=== PATIENT | female | born 1960 | race Caucasian/White ===

== ENCOUNTER 2016-11-12 10:34 | Observation (INO) ==
[2016-11-12] MEDS ORDERED: Aspirin 81 MG TAB.CHEW PO ONE (10:40)
--- NOTE | 2016-11-12 10:44 | Emergency Department Note ---
Disposition Clinical Impression: Chest pain Qualifiers: Chest pain type: unspecified Qualified Code(s): R07.9 - Chest pain, unspecified Disposition: Admitted As Inpatient Referrals: Dean Tim MD [Primary Care Provider] - Time of Disposition: 12:15 Chest Pain HPI - General Stated Complaint: chest pain since last night Time Seen by Provider: 11/12/16 10:39 Source: patient Mode of arrival: ambulatory Limitations: no limitations Vital Signs Reviewed: Yes Nursing Notes Reviewed: Yes - History of Present Illness HPI Narrative: 56-year-old presents from complaining of chest pain which began about 4 AM. Patient does have a previous stent remotely. Patient states that she has not had any recent workup. Patient is a diabetic. Pt complaint: chest pain Onset (ago): hour(s) Duration: constant Onset: during rest Pain Location: substernal, left chest Severity: mild, moderate Quality: tightness, aching Pain Radiation: none Improves with: nothing Worsens with: nothing Associated symptoms: Denies: nausea, vomiting, diaphoresis, syncope, palpitations - Related Data Home Medications Medication Instructions Recorded Confirmed Aspirin 325 mg PO QAM 08/11/15 03/18/16 Atorvastatin Calcium [Lipitor] 80 mg PO QAM 08/11/15 03/18/16 Hydrochlorothiazide 25 mg PO QAM 08/11/15 03/18/16 Insulin Glargine,Hum.rec.anlog 60 unit SQ HS 08/11/15 03/18/16 [Lantus Solostar] Insulin Glargine,Hum.rec.anlog 70 unit SQ QAM 08/11/15 03/18/16 [Lantus Solostar] Insulin Lispro Protamin/Lispro 5 - 18 unit SQ TIDAC 08/11/15 03/18/16 [Humalog Mix 75-25 Kwikpen] Liraglutide [Victoza 2-Jarad] 1.2 mg SQ QAM 08/11/15 03/18/16 Lisinopril [Zestril] 20 mg PO QAM 08/11/15 03/18/16 Metoprolol [Lopressor] 50 mg PO BID 08/11/15 03/18/16 Nitroglycerin 0.4 mg SL Q5MIN PRN 08/11/15 03/18/16 Pantoprazole Sodium [Protonix] 40 mg PO BID 08/11/15 03/18/16 Ranitidine HCl [Zantac] 150 mg PO BID 08/11/15 03/18/16 Tizanidine [Zanaflex] 4 mg PO TID PRN 08/11/15 03/18/16 Isosorbide MONOnitrate [Isosorbide 30 mg PO DAILY 12/01/15 03/18/16 Mononitrate] Previous Rx's Medication Instructions Recorded Cefdinir [Omnicef] 300 mg PO BID #20 capsule 08/09/16 PredniSONE [Prednisone] 40 mg PO DAILY #10 tablet 08/09/16 Promethazine/Dextromethorphan 5 ml PO Q4H PRN #120 ml 08/09/16 [Promethazine-Dm Syrup] Allergies Allergy/AdvReac Type Severity Reaction Status Date / Time dicyclomine AdvReac Hives Verified 11/12/16 10:44 metformin AdvReac Blurry Verified 11/12/16 10:44 Vision Constitutional: Denies: fever, chills, weakness, weight change Eyes: Denies: eye pain, eye discharge, vision change ENT ED: Denies: ear pain, throat pain, dental pain, hearing loss, epistaxis, congestion, dysphagia Cardiovascular: Reports: chest pain. Denies: palpitations, dyspnea on exertion , edema, syncope Respiratory: Denies: cough, dyspnea, wheezes, hemoptysis, stridor Gastrointestinal: Denies: abdominal pain, nausea, vomiting, diarrhea, constipation, hematemesis, melena, hematochezia Genitourinary: Denies: dysuria, frequency, hematuria, discharge Musculoskeletal: Denies: back pain, neck pain, arthralgia, myalgia Integumentary: Denies: rash, abrasion, lesions Neurological: Denies: headache, weakness, numbness, paresthesias, confusion, abnormal gait, vertigo Psychiatric: Denies: anxiety, depression, suicidal thoughts, homicidal thoughts , auditory hallucinations, visual hallucinations Endocrine: Denies: fatigue Hematological/Lymphatic: Denies: easy bleeding, easy bruising Allergic/Immunologic: Denies: facial swelling, urticaria Chest Pain PMH - Past Medical History Medical history: Reports: coronary artery disease, diabetes, GERD, hyperlipidemia, hypertension, myocardial infarction Surgical history: Reports: angioplasty/stent (PCI of diag 1 in 2005), cholecystectomy, hysterectomy, other (hernia repair 08/2013) Psychiatric history: Reports: depression ART EDITOR history: Reports: no ART EDITOR history - Social History Smoking Status: Unknown if ever smoked Alcohol use: Reports: unknown Drug use: Reports: none Physical Exam - General Limitations: no limitations General appearance: alert, in no apparent distress - Head Head exam: atraumatic, normocephalic, normal inspection - Eye Eye exam: Present: normal appearance, PERRL, EOMI - ENT ENT exam: normal exam, normal oropharynx, mucous membranes moist - Neck Neck exam: Present: normal inspection, full ROM, trachea midline - Chest Chest inspection: Present: normal inspection, symmetric chest wall rise - Respiratory Respiratory exam: Present: normal lung sounds bilaterally - Cardiovascular Cardiovascular exam: Present: regular rate, normal rhythm, normal heart sounds - Abdominal Exam Abdominal exam: Present: soft, Non-Tender. Absent: tenderness, distention, guarding, rebound, rigidity - Extremities Exam Extremities exam: Present: normal inspection, full ROM. Absent: tenderness, pedal edema - Expanded Lower Extremity Exam Neurovascular/Tendon exam: Absent: motor deficit, sensory deficit, tendon deficit - Back Exam Back exam: Present: normal inspection, full ROM. Absent: tenderness - Neurological Exam Neurological exam: Present: alert, oriented X3 - Psychiatric Psychiatric exam: Present: normal affect, normal mood - Skin Skin exam: Present: warm, dry, intact, normal color Course - Reevaluation(s) Reevaluation #1: 56-year-old with known coronary artery disease has not had a recent workup and comes in complaining of chest pain. Workup in the ER is negative we'll go ahead and admit to rule out. Time: 12:14 - Consultations Consultation #1: Discussed with , admit. Time: 12:14 Vital Signs Temperature 97.9 F 11/12/16 10:42 Pulse Rate 80 11/12/16 10:42 Respiratory Rate 16 11/12/16 10:42 Blood Pressure 138/81 11/12/16 10:42 O2 Sat by Pulse Oximetry 100 11/12/16 10:42 Temperature 97.9 F 11/12/16 10:42 Pulse Rate 76 11/12/16 11:39 Respiratory Rate 16 11/12/16 11:39 Blood Pressure 112/69 11/12/16 11:39 O2 Sat by Pulse Oximetry 97 11/12/16 11:39 Oxygen Delivery Oxygen Delivery Room Air Chest Pain - Lab Data Lab results reviewed: Yes I reviewed the patient's lab results. Result diagrams: 11/12/16 10:57 11/12/16 10:57 Lab Results 11/12/16 11/12/16 11/12/16 Range/Units 10:47 10:57 10:57 WBC 12.1 H (4.3-11.1) K/mcL RBC 4.42 (3.82-4.97) M/mcL Hgb 11.6 (11.5-15.4) g/dL Hct 36.3 (35.3-44.9) % MCV 82.1 L (83.0-100.0) fL MCH 26.2 L (28.0-33.3) pg MCHC 32.0 (31.6-35.5) g/dL RDW 13.3 (11.5-14.5) % Plt Count 359 (140-400) K/mcL MPV 9.1 L (9.4-12.4) fL Immature Gran % 0.3 (0-4) % Seg Neutrophils % 79.1 % Lymphocytes % 13.1 % Monocytes % 6.4 % Eosinophils % 0.6 % Basophils % 0.5 % Neutrophils # 9.6 H (1.6-8.9) K/mcL Lymphocytes # 1.6 (0.6-4.6) K/mcL Monocytes # 0.8 (0.0-1.3) K/mcL Eosinophils # 0.1 (0.0-0.6) K/mcL Basophils # 0.1 (0.0-0.2) K/mcL PT 11.1 (9.4-12.1) Seconds INR 1.0 APTT 29.3 (26.0-36.0) Seconds Sodium (136-145) mEq/L Potassium (3.5-4.5) mEq/L Chloride (98-109) mEq/L Carbon Dioxide (19-29) mEq/L BUN (7-20) mg/dL Creatinine (0.57-1.11) mg/dL Est GFR ( Amer) (> 60) Est GFR (Non-Af Amer) (> 60) BUN/Creatinine Ratio (6-26) Glucose (70-99) mg/dL POC Glucose 103 H (58-89) Calculated Osmolality (280-300) Calcium (8.6-10.8) mg/dL Troponin I (0-0.03) ng/mL 11/12/16 11/12/16 Range/Units 10:57 10:57 WBC (4.3-11.1) K/mcL RBC (3.82-4.97) M/mcL Hgb (11.5-15.4) g/dL Hct (35.3-44.9) % MCV (83.0-100.0) fL MCH (28.0-33.3) pg MCHC (31.6-35.5) g/dL RDW (11.5-14.5) % Plt Count (140-400) K/mcL MPV (9.4-12.4) fL Immature Gran % (0-4) % Seg Neutrophils % % Lymphocytes % % Monocytes % % Eosinophils % % Basophils % % Neutrophils # (1.6-8.9) K/mcL Lymphocytes # (0.6-4.6) K/mcL Monocytes # (0.0-1.3) K/mcL Eosinophils # (0.0-0.6) K/mcL Basophils # (0.0-0.2) K/mcL PT (9.4-12.1) Seconds INR APTT (26.0-36.0) Seconds Sodium 140 (136-145) mEq/L Potassium 4.0 (3.5-4.5) mEq/L Chloride 106 (98-109) mEq/L Carbon Dioxide 23 (19-29) mEq/L BUN 14 (7-20) mg/dL Creatinine 0.86 (0.57-1.11) mg/dL Est GFR ( Amer) > 60 (> 60) Est GFR (Non-Af Amer) > 60 (> 60) BUN/Creatinine Ratio 16 (6-26) Glucose 109 H (70-99) mg/dL POC Glucose (58-89) Calculated Osmolality 291 (280-300) Calcium 9.2 (8.6-10.8) mg/dL Troponin I 0.01 (0-0.03) ng/mL - EKG Data EKG attestation: Yes I reviewed and interpreted this EKG. EKG shows normal: sinus rhythm Rate: normal Rhythm: NSR Interpretation: no acute changes Heart Score - Score History: Moderately Suspicious EKG: Normal Age: 45-65 Risk Factors: Equal/Greater than 3 risk factor or history of atherosclerotic disease Troponin: Less than normal limit HEART Score Total: 4
[2016-11-12 11:05] LABS: Basophils # 0.1 K/mcL (0.0-0.2); Basophils % 0.5 %; Eosinophils # 0.1 K/mcL (0.0-0.6); Eosinophils % 0.6 %; Hematocrit 36.3 % (35.3-44.9); Hemoglobin 11.6 g/dL (11.5-15.4); Immature Granulocytes % 0.3 % (0-4); Lymphocytes # 1.6 K/mcL (0.6-4.6); Lymphocytes % 13.1 %; Mean Corpuscular Hemoglobin 26.2 pg (28.0-33.3); Mean Corpuscular Volume 82.1 fL (83.0-100.0); Mean Platelet Volume 9.1 fL (9.4-12.4); Monocytes # 0.8 K/mcL (0.0-1.3); Monocytes % 6.4 %; Neutrophils # 9.6 K/mcL (1.6-8.9); Platelet Count 359 K/mcL (140-400); Red Blood Count 4.42 M/mcL (3.82-4.97); Red Cell Distribution Width 13.3 % (11.5-14.5); Segmented Neutrophils % 79.1 %
[2016-11-12 11:12] LABS: Prothrombin Time 11.1 Seconds (9.4-12.1)
[2016-11-12 11:15] LABS: Activated Partial Thrombo Time 29.3 Seconds (26.0-36.0)
[2016-11-12 11:17] LABS: BUN/Creatinine Ratio 16 (6-26); Blood Urea Nitrogen 14 mg/dL (7-20); Calcium 9.2 mg/dL (8.6-10.8); Carbon Dioxide 23 mEq/L (19-29); Chloride 106 mEq/L (98-109); Glucose 109 mg/dL (70-99); Osmolality,Calculated 291 (280-300); Sodium 140 mEq/L (136-145); eGFR For African Americans > 60 (> 60); eGFR For Non-African Americans > 60 (> 60)
[2016-11-12] MEDS ORDERED: Ibuprofen 400 MG TABLET PO PRN (13:30)
[2016-11-12] MEDS ORDERED: Naloxone 0.4 MG/ML INJ IVP PRN (13:30)
[2016-11-12] MEDS ORDERED: Nitroglycerin 0.4 MG TAB.SUBL SL PRN (13:33)
[2016-11-12] MEDS ORDERED: D5% in Water 1,000 ML IV PRN (13:37)
[2016-11-12] MEDS ORDERED: Dextrose Gel 15 GM PO PRN ×2 (13:37)
[2016-11-12] MEDS ORDERED: *HR* Dextrose 50 % in Water (Syg) 50 ML SYRINGE IVP PRN (13:37)
--- NOTE | 2016-11-12 13:54 | Internal Med History&Physical ---
<Boyd Brooks - Last Filed: 11/12/16 20:46> Date of Encounter: 11/12/16 Internal Medicine - H&P: HPI History of present illness: Ms. Hill is a 56 year old female Internal Medicine - H&P: Meds Aspirin 325 mg PO QAM 08/11/15 [History] Atorvastatin Calcium [Lipitor] 80 mg PO QAM 08/11/15 [History] Hydrochlorothiazide 25 mg PO QAM 08/11/15 [History] Insulin Glargine,Hum.rec.anlog [Lantus Solostar] 60 unit SQ HS 08/11/15 [History ] Insulin Glargine,Hum.rec.anlog [Lantus Solostar] 70 unit SQ QAM 08/11/15 [ History] Insulin Lispro Protamin/Lispro [Humalog Mix 75-25 Kwikpen] 5 - 18 unit SQ TIDAC 08/11/15 [History] Liraglutide [Victoza 2-Jarad] 1.2 mg SQ QAM 08/11/15 [History] Lisinopril [Zestril] 20 mg PO QAM 08/11/15 [History] Metoprolol [Lopressor] 50 mg PO BID 08/11/15 [History] Nitroglycerin 0.4 mg SL Q5MIN PRN 08/11/15 [History] Pantoprazole Sodium [Protonix] 40 mg PO BID 08/11/15 [History] Ranitidine HCl [Zantac] 150 mg PO BID 08/11/15 [History] Isosorbide MONOnitrate [Isosorbide Mononitrate] 30 mg PO DAILY 12/01/15 [History ] Allergies dicyclomine Adverse Reaction (Verified 11/12/16 10:44) Hives metformin Adverse Reaction (Verified 11/12/16 10:44) Blurry Vision All Systems PM: A 10-system review of systems was performed and is negative for pertinent findings except as documented above in the HPI. - Constitutional Vitals: Temp Pulse Resp BP Pulse Ox 97.9 F 75 16 110/70 94 L 11/12/16 18:35 11/12/16 18:35 11/12/16 18:35 11/12/16 20:41 11/12/16 18:35 Internal Med - H&P Results - Labs CBC & Chem 7: 11/12/16 17:43 11/12/16 10:57 Labs: Short CBC 11/12/16 Range/Units 17:43 WBC 12.5 H (4.3-11.1) K/mcL Hgb 11.3 L (11.5-15.4) g/dL Hct 35.9 (35.3-44.9) % Plt Count 366 (140-400) K/mcL Cardiac Enzymes 11/12/16 Range/Units 17:43 Troponin I 0.00 (0-0.03) ng/mL - Attending Attestation I examined this patient and my medical decision-making was reviewed with the FIELD SUPERINTENDENT/PA/Advanced Practice Nurse/Resident Physician. I agree with the documented findings, disposition and treatment plan as described except to the extent set forth below. Patient presented with chest pain. Currently she tells me she has 3/10 dull midsternal chest pain. On exam she is in no acute distress awake alert oriented heart is regular rhythm and rhythm S1-S2. Plan continue heparin drip. Aspirin. Nitroglycerin. We will add morphine for pain. Plan for cardiac catheterization tomorrow. Cardiology was consulted. <Nikki Berry M - Last Filed: 11/13/16 00:57> Date of Encounter: 11/13/16 Time of Encounter: 13:46 Assessment and Plan (1) Chest pain Current visit: Yes Status: Acute Patient reports burning chest pain that woke her from sleep at 4 AM this morning , radiating from the left side of her chest to the right, and it comes and goes. She denies any shortness of breath, palpitations, lightheadedness. Reports accompanied diarrhea which is consistent with a heart attack in 2005. She had a stress test in July 2015 which did show a small reversible apical anterior defect. At that time medical management was recommended and Imdur was added to her regimen. She denies any current chest pain. Initial troponin was negative at 0.01. EKG showed normal sinus rhythm with no acute changes. 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 Serial troponins for trend. titrate O2 to maintain O2 Sat > 92% Consulted Cardiology, Dr. Smith, who recommended Heparin drip and they will plan for a cardiac cath in the morning. Qualifiers: Chest pain type: precordial pain Qualified Code(s): R07.2 - Precordial pain (2) Type 2 diabetes mellitus Current visit: Yes Status: Chronic diabetic diet. Check blood sugars ACHS Continue home basal dose of insulin 60u HS and 70u Q AM High dose sliding scale correction dose ACHS hypoglycemic protocol. 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 Possible source of her chest pain is acid reflux. Omeprazole 20mg daily ordered. Qualifiers: Esophagitis presence: without esophagitis Qualified Code(s): K21.9 - Gastro -esophageal reflux disease without esophagitis (4) Hypertension Current visit: No Status: Chronic Continue home doses of Metoprolol, Imdur, lisinopril and HCTZ. Hold metoprolol and Imdur after midnight for planned stress test in the morning. Qualifiers: Hypertension type: essential hypertension Qualified Code(s): I10 - Essential (primary) hypertension (5) DVT prophylaxis Current visit: Yes Status: Acute Ambulate as tolerated. anti-embolic stockings Heparin 5,000u SQ BID Internal Medicine - H&P: HPI Chief complaint: Chest pain Admitted From: Emergency Dept Plans for Post Hospital Care: Home History of present illness: Ms. Hill is a 56 year old female with history of hypertension, hyperlipidemia , type 2 diabetes, coronary artery disease with [place] in 2006 status post stent placement who presented to the emergency department this morning with complaints of chest pain. She reports the chest pain work woke her up at 4 AM describes it as a burning sensation that starts on the left side of her chest and radiates to the right side. It comes and goes. She did not take any nitroglycerin. She reports she is currently chest pain-free. She reports she also had an episode of diarrhea this morning which is actually consistent with her experience with her previous [place] in 2005. She denies any shortness of breath , palpitations, lightheadedness, dizziness, nausea, or vomiting. Initial troponin in the emergency department was negative at 0.01, EKG showed normal sinus rhythm with no acute changes, chest x-ray showed no acute process. She did have a stress test in July 2015 which did show a small reversible apical anterior defect and at that time was determined to optimize medical management and Imdur was added to her regimen. On exam she is alert and oriented, obese, in no acute distress. Lungs are clear to auscultation bilaterally and heart has regular rate and rhythm. Past Med Surg Social Fam HX - Past Medical History Medical history: coronary artery disease, diabetes, GERD, hyperlipidemia, hypertension, myocardial infarction Psychiatric history: depression - Past Surgical History Surgical History: angioplasty/stent (PCI of diag 1 in 2005), cholecystectomy, hysterectomy, other (hernia repair 08/2013) - Social History Smoking Status: Unknown if ever smoked Smokeless Tobacco Status: No Alcohol use: unknown Drug use: none - Family History Mother Living Status: Age at : 60 Cause of : CHF Hx Family Cardiac Disorders: Yes Sister Living Status: Still Living Hx Family Cancer: Yes All Systems PM: A 10-system review of systems was performed and is negative for pertinent findings except as documented above in the HPI. - Constitutional Constitutional: no chills, no fever(s), no night sweats - EENT Eyes: no change in vision, no discharge, no pain, no photophobia Ears: no ear discharge, no ear pain, no tinnitus Nose, mouth and throat: no dysphagia, no nasal discharge, no neck pain, no sore throat - Cardiovascular Cardiovascular ROS IM: chest pain, no diaphoresis, no dyspnea, no lightheadedness, no palpitations, no syncope - Respiratory Respiratory: no cough, no dyspnea, no wheezing, no excessive phlegm production - Gastrointestinal Gastrointestinal: diarrhea, no abdominal pain, no hematemesis, no hematochezia, no melena, no nausea, no vomiting - Genitourinary Genitourinary: no change in urinary stream, no dysuria, no flank pain, no hematuria - Musculoskeletal Musculoskeletal ROS IM: back pain (chronic), no numbness, no tingling - Integumentary Integumentary IM: no rash, no unusual bruising - Neurological Neurological ROS: numbness (Bilateral hands on and off for a few weeks), tingling (Bilateral hands on and off for a few weeks), no confusion, no convulsions, no focal weakness, no tremor(s) - Hematologic/Lymphatic Hematologic/Lymphatic: no easy bruising - Constitutional Vitals: Temp Pulse Resp BP Pulse Ox 98.0 F 77 16 104/67 99 11/12/16 12:43 11/12/16 12:43 11/12/16 12:43 11/12/16 12:43 11/12/16 12:43 General appearance: Present: A&O X 3, no acute distress, obese - Head Head exam: Present: atraumatic, normocephalic - Eye Eye exam: Present: PERRL, conjuntiva pink, sclera anicteric Pupils: Present: PERRL - Neck Neck exam general surgery: Present: supple, trachea midline. Absent: lymphadenopathy - Respiratory Respiratory exam: Present: CTAB. Absent: accessory muscle use, rales, rhonchi, wheezes - Cardiovascular Cardiovascular exam: Present: RRR, +S1, +S2. Absent: diastolic murmur, gallop, rubs, systolic murmur - GI/Abdominal GI/Abdominal exam: Present: normal bowel sounds, soft, no peritoneal signs. Absent: distended, tenderness - Extremities Exam Extremities exam: Present: warm, radial pulses palpable and symetrical. Absent : calf tenderness, cyanotic, pedal edema - Neurological Exam Neurological exam: Present: CN II-XII intact, oriented X3, no focal deficits. Absent: facial droop, speech deficit - Skin Skin exam: Present: dry, intact Internal Med - H&P Results - Labs CBC & Chem 7: 11/12/16 17:43 11/12/16 10:57 Labs: All Lab Results (24 Hours) 11/12/16 11/12/16 11/12/16 Range/Units 10:47 10:57 10:57 WBC 12.1 H (4.3-11.1) K/mcL RBC 4.42 (3.82-4.97) M/mcL Hgb 11.6 (11.5-15.4) g/dL Hct 36.3 (35.3-44.9) % MCV 82.1 L (83.0-100.0) fL MCH 26.2 L (28.0-33.3) pg MCHC 32.0 (31.6-35.5) g/dL RDW 13.3 (11.5-14.5) % Plt Count 359 (140-400) K/mcL MPV 9.1 L (9.4-12.4) fL Immature Gran % 0.3 (0-4) % Seg Neutrophils % 79.1 % Lymphocytes % 13.1 % Monocytes % 6.4 % Eosinophils % 0.6 % Basophils % 0.5 % Neutrophils # 9.6 H (1.6-8.9) K/mcL Lymphocytes # 1.6 (0.6-4.6) K/mcL Monocytes # 0.8 (0.0-1.3) K/mcL Eosinophils # 0.1 (0.0-0.6) K/mcL Basophils # 0.1 (0.0-0.2) K/mcL PT 11.1 (9.4-12.1) Seconds INR 1.0 APTT 29.3 (26.0-36.0) Seconds Sodium (136-145) mEq/L Potassium (3.5-4.5) mEq/L Chloride (98-109) mEq/L Carbon Dioxide (19-29) mEq/L BUN (7-20) mg/dL Creatinine (0.57-1.11) mg/dL Est GFR ( Amer) (> 60) Est GFR (Non-Af Amer) (> 60) BUN/Creatinine Ratio (6-26) Glucose (70-99) mg/dL POC Glucose 103 H (58-89) Calculated Osmolality (280-300) Calcium (8.6-10.8) mg/dL Troponin I (0-0.03) ng/mL 11/12/16 11/12/16 11/12/16 Range/Units 10:57 10:57 12:46 WBC (4.3-11.1) K/mcL RBC (3.82-4.97) M/mcL Hgb (11.5-15.4) g/dL Hct (35.3-44.9) % MCV (83.0-100.0) fL MCH (28.0-33.3) pg MCHC (31.6-35.5) g/dL RDW (11.5-14.5) % Plt Count (140-400) K/mcL MPV (9.4-12.4) fL Immature Gran % (0-4) % Seg Neutrophils % % Lymphocytes % % Monocytes % % Eosinophils % % Basophils % % Neutrophils # (1.6-8.9) K/mcL Lymphocytes # (0.6-4.6) K/mcL Monocytes # (0.0-1.3) K/mcL Eosinophils # (0.0-0.6) K/mcL Basophils # (0.0-0.2) K/mcL PT (9.4-12.1) Seconds INR APTT (26.0-36.0) Seconds Sodium 140 (136-145) mEq/L Potassium 4.0 (3.5-4.5) mEq/L Chloride 106 (98-109) mEq/L Carbon Dioxide 23 (19-29) mEq/L BUN 14 (7-20) mg/dL Creatinine 0.86 (0.57-1.11) mg/dL Est GFR ( Amer) > 60 (> 60) Est GFR (Non-Af Amer) > 60 (> 60) BUN/Creatinine Ratio 16 (6-26) Glucose 109 H (70-99) mg/dL POC Glucose 91 H (58-89) Calculated Osmolality 291 (280-300) Calcium 9.2 (8.6-10.8) mg/dL Troponin I 0.01 (0-0.03) ng/mL
[2016-11-12] MEDS ORDERED: *HR* Heparin 5,000 UNIT/ML VIAL IVP ONE (17:18)
[2016-11-12] MEDS ORDERED: *HR* Heparin 5,000 UNIT/ML VIAL IVP PRN ×2 (17:18)
[2016-11-12] MEDS ORDERED: Heparin 25,000 UNIT/500 ML D5W 25,000 UNIT/500 ML MLS IVC SCH (17:30)
[2016-11-12 18:01] LABS: Hematocrit 35.9 % (35.3-44.9); Hemoglobin 11.3 g/dL (11.5-15.4); Mean Corpuscular HGB Conc 31.5 g/dL (31.6-35.5); Mean Corpuscular Hemoglobin 26.4 pg (28.0-33.3); Mean Corpuscular Volume 83.9 fL (83.0-100.0); Mean Platelet Volume 9.6 fL (9.4-12.4); Platelet Count 366 K/mcL (140-400); Red Blood Count 4.28 M/mcL (3.82-4.97); Red Cell Distribution Width 13.4 % (11.5-14.5)
[2016-11-12] MEDS: Insulin LISPRO 300 UNITS/3 ML VIAL SQ SCH ×2 (18:01→20:42)
[2016-11-12 18:07] LABS: INR 1.1; Prothrombin Time 11.8 Seconds (9.4-12.1)
[2016-11-12 18:09] LABS: Activated Partial Thrombo Time 29.6 Seconds (26.0-36.0)
[2016-11-12] MEDS ORDERED: *HR* Heparin 5,000 UNIT/ML VIAL SQ SCH (19:00)
[2016-11-12] MEDS: Famotidine 20 MG TABLET PO SCH (19:56)
[2016-11-12] MEDS ORDERED: *HR* Morphine 2 MG/ML SYRINGE IVP PRN (20:26)
[2016-11-12] MEDS: Insulin DETEMIR 100 UNIT/ML X5UNITS SQ SCH (20:43)
[2016-11-12] MEDS ORDERED: NON-FORMULARY MEDICATION 1 EACH EACH (Ranitidine Hcl [Zantac] 150 MG) PO SCH (21:00)
[2016-11-13 01:48] LABS: Basophils # 0.1 K/mcL (0.0-0.2); Basophils % 0.6 %; Eosinophils # 0.2 K/mcL (0.0-0.6); Eosinophils % 1.5 %; Hematocrit 33.9 % (35.3-44.9); Hemoglobin 10.7 g/dL (11.5-15.4); Immature Granulocytes % 0.4 % (0-4); Lymphocytes # 3.1 K/mcL (0.6-4.6); Lymphocytes % 23.1 %; Mean Corpuscular HGB Conc 31.6 g/dL (31.6-35.5); Mean Corpuscular Hemoglobin 26.5 pg (28.0-33.3); Mean Corpuscular Volume 83.9 fL (83.0-100.0); Mean Platelet Volume 9.6 fL (9.4-12.4); Monocytes # 1.3 K/mcL (0.0-1.3); Monocytes % 9.3 %; Neutrophils # 8.8 K/mcL (1.6-8.9); Platelet Count 350 K/mcL (140-400); Red Blood Count 4.04 M/mcL (3.82-4.97); Red Cell Distribution Width 13.3 % (11.5-14.5); Segmented Neutrophils % 65.1 %
[2016-11-13 02:03] LABS: BUN/Creatinine Ratio 19 (6-26); Blood Urea Nitrogen 19 mg/dL (7-20); Calcium 8.7 mg/dL (8.6-10.8); Carbon Dioxide 20 mEq/L (19-29); Chloride 107 mEq/L (98-109); Glucose 121 mg/dL (70-99); Osmolality,Calculated 292 (280-300); Potassium 3.5 mEq/L (3.5-4.5); Sodium 139 mEq/L (136-145); eGFR For African Americans > 60 (> 60); eGFR For Non-African Americans 56 (> 60)
--- NOTE | 2016-11-13 08:24 | Cardiology Consult Note ---
Date of Encounter: 11/13/16 Time of Encounter: 08:30 Assessment and Plan Discussion w patient/family: The assessment and plan as outlined above was discussed with the patient and/or family members who expressed understanding and agreement. All questions were answered. Thank you for involving us in the care of your patient. Please call with any questions. will arrange for a Lexiscan GXT Can stop Heparin if GXT neg , no further cardiac work up is needed History of Present Illness Consult date: 11/13/16 Requesting physician: Yvette Nieves Consult reason: Chest pain Chief complaint: Chest pain , history of CAD History of present illness: Ms. Hill is a 56 year old female with a history of CAD in a small vessel who had a PCI in the remote past also has Hypertension, Dyslipidemia, Pain is central non radiating , no diaphoresis , sob, did not take NTG possibly similar to previous CAD pain presently pt is pain free Past Med Surg Social Fam HX - Past Medical History Medical history: coronary artery disease, diabetes, GERD, hyperlipidemia, hypertension, myocardial infarction Psychiatric history: depression - Past Surgical History Surgical History: angioplasty/stent (PCI of diag 1 in 2005), cholecystectomy, hysterectomy, other (hernia repair 08/2013) - Social History Smoking Status: Unknown if ever smoked Smokeless Tobacco Status: No Alcohol use: unknown Drug use: none - Family History Sister Living Status: Still Living Hx Family Cancer: Yes Mother Living Status: Age at : 60 Cause of : CHF Hx Family Cardiac Disorders: Yes Medications and Allergies Aspirin 325 mg PO QAM 08/11/15 [History] Atorvastatin Calcium [Lipitor] 80 mg PO QAM 08/11/15 [History] Hydrochlorothiazide 25 mg PO QAM 08/11/15 [History] Insulin Glargine,Hum.rec.anlog [Lantus Solostar] 60 unit SQ HS 08/11/15 [History ] Insulin Glargine,Hum.rec.anlog [Lantus Solostar] 70 unit SQ QAM 08/11/15 [ History] Insulin Lispro Protamin/Lispro [Humalog Mix 75-25 Kwikpen] 5 - 18 unit SQ TIDAC 08/11/15 [History] Liraglutide [Victoza 2-Jarad] 1.2 mg SQ QAM 08/11/15 [History] Lisinopril [Zestril] 20 mg PO QAM 08/11/15 [History] Metoprolol [Lopressor] 50 mg PO BID 08/11/15 [History] Nitroglycerin 0.4 mg SL Q5MIN PRN 08/11/15 [History] Pantoprazole Sodium [Protonix] 40 mg PO BID 08/11/15 [History] Ranitidine HCl [Zantac] 150 mg PO BID 08/11/15 [History] Isosorbide MONOnitrate [Isosorbide Mononitrate] 30 mg PO DAILY 12/01/15 [History ] Allergies dicyclomine Adverse Reaction (Verified 11/12/16 10:44) Hives metformin Adverse Reaction (Verified 11/12/16 10:44) Blurry Vision All Systems Review: A 10-system review of systems was performed and is negative for pertinent findings except as documented above in the HPI. Physical Examination Vital Signs, Last 4 Hours Temp Pulse Resp BP Pulse Ox 11/13/16 07:44 98.1 F 70 16 126/83 98 General: Other (obese ) Results 11/13/16 01:27 11/13/16 01:27 Lab Results 11/12/16 11/12/16 11/12/16 17:43 17:43 17:43 WBC 12.5 H Hgb 11.3 L Hct 35.9 Plt Count 366 INR 1.1 APTT 29.6 Sodium Potassium Chloride Carbon Dioxide BUN Creatinine Glucose Calcium Troponin I 0.00 11/13/16 11/13/16 11/13/16 01:27 01:27 01:27 WBC 13.6 H Hgb 10.7 L Hct 33.9 L Plt Count 350 INR APTT Sodium 139 Potassium 3.5 Chloride 107 Carbon Dioxide 20 BUN 19 Creatinine 1.02 Glucose 121 H Calcium 8.7 Troponin I 0.00 11/13/16 01:27 WBC Hgb Hct Plt Count INR APTT 62.7 H D Sodium Potassium Chloride Carbon Dioxide BUN Creatinine Glucose Calcium Troponin I - EKG Interpretation EKG results cardiology: no diagnostic ischemia (no significant change from previous) Consult Discharge Plan - Plan
[2016-11-13] MEDS: Insulin LISPRO 300 UNITS/3 ML VIAL SQ SCH ×4 (08:36→20:20)
[2016-11-13] MEDS ORDERED: Isosorbide MONOnitrate (24 HR) 30 MG TAB.ER.24H PO SCH (09:00)
[2016-11-13] MEDS ORDERED: Insulin DETEMIR 100 UNIT/ML X5UNITS SQ SCH (09:00)
[2016-11-13] MEDS ORDERED: Regadenoson 0.4 MG/5 ML SYRINGE IVP ONE (09:28)
[2016-11-13] MEDS: hydroCHLOROthiazide 25 MG TABLET PO SCH (12:21)
[2016-11-13] MEDS: Lisinopril 20 MG TABLET PO SCH (12:21)
[2016-11-13] MEDS: Famotidine 20 MG TABLET PO SCH ×2 (12:21→20:19)
[2016-11-13] MEDS: Aspirin 325 MG TABLET PO SCH (12:21)
--- NOTE | 2016-11-13 14:25 | Internal Med Progress Note ---
Date of Encounter: 11/13/16 Time of Encounter: 12:45 - Assessment and plan (1) Chest pain Current Visit: Yes Status: Acute Assessment and plan: Stress test done today. Will need second part tomorrow. Pain resolved currently. Continue telemetry. Cardiology consulted and input appreciated. Qualifiers: Chest pain type: precordial pain Qualified Code(s): R07.2 - Precordial pain (2) Type 2 diabetes mellitus Current Visit: Yes Status: Chronic Assessment and plan: Well-controlled. Continue current insulin regimen. Qualifiers: Diabetes mellitus complication status: without complication Diabetes mellitus residential insulin use: with terminologist use Qualified Code(s): E11.9 - Type 2 diabetes mellitus without complications; Z79.4 - long term care pharmacist (current) use of insulin (3) GERD (gastroesophageal reflux disease) Current Visit: No Status: Chronic Assessment and plan: Stop Motrin. Start continue PPI. Qualifiers: Esophagitis presence: without esophagitis Qualified Code(s): K21.9 - Gastro -esophageal reflux disease without esophagitis (4) Hypertension Current Visit: No Status: Chronic Assessment and plan: Well-controlled. Qualifiers: Hypertension type: essential hypertension Qualified Code(s): I10 - Essential (primary) hypertension - Subjective Interval history: Patient no longer has chest pain. She underwent stress test this morning. Denies any chest pain during the procedure. No shortness of breath. She has a history of heartburn and epigastric pain and was previously on PPI. This has been stopped by her primary care provider due to insurance issues with obtaining her medication. - Constitutional Vitals: Temp Pulse Resp BP Pulse Ox 97.8 F 87 15 130/88 100 11/13/16 11:20 11/13/16 11:20 11/13/16 11:20 11/13/16 11:20 11/13/16 11:20 General appearance: Present: cooperative, A&O X 3, pleasant, no acute distress, obese - Respiratory Respiratory exam: Present: CTAB. Absent: accessory muscle use, rales, rhonchi, wheezes - Cardiovascular Cardiovascular exam: Present: RRR, +S1, +S2. Absent: diastolic murmur, gallop, rubs, systolic murmur - GI/Abdominal GI/Abdominal exam: Present: normal bowel sounds, soft, no peritoneal signs. Absent: distended, tenderness - Extremities Exam Extremities exam: Present: warm, radial pulses palpable and symetrical. Absent : calf tenderness, cyanotic, pedal edema - Neurological Exam Neurological exam: Present: alert, oriented X3, no focal deficits. Absent: facial droop, speech deficit - Skin Skin exam: Present: dry, intact Internal Medicine: Result - Labs CBC & Chem 7: 11/13/16 01:27 11/13/16 01:27 Labs: Short CBC 11/12/16 11/13/16 Range/Units 17:43 01:27 WBC 12.5 H 13.6 H (4.3-11.1) K/mcL Hgb 11.3 L 10.7 L (11.5-15.4) g/dL Hct 35.9 33.9 L (35.3-44.9) % Plt Count 366 350 (140-400) K/mcL Neutrophils # 8.8 (1.6-8.9) K/mcL BMP 11/13/16 01:27 Sodium 139 Potassium 3.5 Chloride 107 Carbon Dioxide 20 BUN 19 Creatinine 1.02 Glucose 121 H Calcium 8.7 Cardiac Enzymes 11/12/16 11/13/16 Range/Units 17:43 01:27 Troponin I 0.00 0.00 (0-0.03) ng/mL - ABG Interpretation ABG results: PT/INR, D-dimer PT 11.8 Seconds (9.4-12.1) 11/12/16 17:43 Consult Discharge Plan - Plan Referrals: Dean Tim MD [Primary Care Provider] - - Attending Attestation This document has been at least partially created by [employer] recognition technology by Dr. Keyes. Errors in grammar, wording or other phrases may exist. If errors are found after the documentation is signed, they will be addressed individually in the addendum section of this document when appropriate.
[2016-11-13] MEDS: Insulin DETEMIR 100 UNIT/ML X5UNITS SQ SCH (20:19)
--- NOTE | 2016-11-13 20:59 | Electrocardiograph Report ---
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
[2016-11-14 05:54] LABS: Basophils # 0.1 K/mcL (0.0-0.2); Basophils % 0.5 %; Eosinophils # 0.2 K/mcL (0.0-0.6); Eosinophils % 1.4 %; Hematocrit 35.6 % (35.3-44.9); Hemoglobin 11.1 g/dL (11.5-15.4); Immature Granulocytes % 0.4 % (0-4); Lymphocytes # 2.2 K/mcL (0.6-4.6); Lymphocytes % 18.7 %; Mean Corpuscular HGB Conc 31.2 g/dL (31.6-35.5); Mean Corpuscular Hemoglobin 26.1 pg (28.0-33.3); Mean Corpuscular Volume 83.8 fL (83.0-100.0); Mean Platelet Volume 9.6 fL (9.4-12.4); Monocytes # 1.2 K/mcL (0.0-1.3); Monocytes % 10.2 %; Neutrophils # 7.9 K/mcL (1.6-8.9); Platelet Count 341 K/mcL (140-400); Red Blood Count 4.25 M/mcL (3.82-4.97); Red Cell Distribution Width 13.5 % (11.5-14.5); Segmented Neutrophils % 68.8 %
[2016-11-14 06:21] LABS: BUN/Creatinine Ratio 23 (6-26); Blood Urea Nitrogen 19 mg/dL (7-20); Calcium 9.1 mg/dL (8.6-10.8); Carbon Dioxide 26 mEq/L (19-29); Chloride 106 mEq/L (98-109); Glucose 124 mg/dL (70-99); Osmolality,Calculated 300 (280-300); Potassium 3.9 mEq/L (3.5-4.5); Sodium 143 mEq/L (136-145); eGFR For African Americans > 60 (> 60); eGFR For Non-African Americans > 60 (> 60)
[2016-11-14 08:04] VITALS: BP 148/67
[2016-11-14] MEDS: Insulin LISPRO 300 UNITS/3 ML VIAL SQ SCH (08:15)
[2016-11-14] MEDS: Lisinopril 20 MG TABLET PO SCH (08:22)
[2016-11-14] MEDS: hydroCHLOROthiazide 25 MG TABLET PO SCH (08:23)
[2016-11-14] MEDS: Aspirin 325 MG TABLET PO SCH (08:23)
[2016-11-14] MEDS: Famotidine 20 MG TABLET PO SCH (08:23)
--- NOTE | 2016-11-14 10:13 | Nuclear Medicine Stress Report ---
Regadenoson Nuclear 2 day Name: Bonnie Hill Date of Study: 11/13/2016 Date: 1960 Ht: 64.0 in Medical Record#: [id number] Age: 56 Wt: 246.0 lb Gender: Female Order #: [id number] Location: [facility] Room: [facility] Supervising Provider: Sonali Mas CNP Reading Physician: Dada Zarate DO, HOLLAND APODACA FASNC Ordering Physician: Latrice Keyes MD Primary Care Physician: Dean Tim MD Stress Technologist: Jenny Urias CORPORATE TRAVEL EXPERT, CCT Weight Checker: Rinku Zhao Indications: Chest Pain Impression: Pharmacologic stress ECG is negative for ischemia at level of heart rate achieved. Gated EF > 70%. Perfusion imaging was negative for ischemia or infarct. History: Hypertension Diabetes Hypercholesteremia Prior PCI Stress Test Summary: Stress Test Type: Pharmacologic Regadenoson 0.4mg/5ml given IV Baseline Information: Initial Heart Rate: 82 Blood Pressure: 124/72 Stress Information: Test Terminated Due to (primary): As per protocol Maximum Blood Pressure: 124/60 Maximum Heart Rate: 113 Percent Maximum Heart Rate Achieved: 64 Double Product: [id number] METS Reached: 1 Symptoms: No chest symptoms Nuclear Summary: SPECT myocardial perfusion imaging using Tc99m Sestamibi given intravenously was performed at rest and following cardiac stress testing. The resting images were obtained following initial dose of 35.6 mCi. Following stress an additional dose of 35.2 mCi was given at peak exercise or 30 seconds post regadenoson infusion. Medication Given: Time Medication Dose Units Route Findings: Stress Note * Resting ECG demonstrated normal sinus rhythm. * No baseline arrhythmias were noted. * Pharmacologic stress ECG is negative for ischemia at level of heart rate achieved. * No arrhythmias were noted during stress. * Patient had no chest pain during stress. * Normal hemodynamic responses to pharmacologic stress. Study Quality * Study quality is average. Gated EF > 70% * Gated EF > 70%. Left Ventricle * The left ventricle is not dilated. LVEDV = 77 mL. NORMALS * Normal wall motion. * Normal segmental perfusion in rest. * Normal segmental perfusion in stress. TID * No evidence of transient ischemic dilatation. TID ratio = 0.92. Lung Uptake * There is no evidence of increase lung uptake. Updated by Dada Zarate DO, PAULIE, HOLLAND, NGHIA on 11/14/2016 10:06:40 AM electronically signed on 11/14/2016 10:07:33 AM with status of Final
--- NOTE | 2016-11-14 11:31 | Discharge Summary ---
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 (3) GERD (gastroesophageal reflux disease) Priority: Secondary Status: Chronic Qualifiers: Esophagitis presence: without esophagitis Qualified Code(s): K21.9 - Gastro -esophageal reflux disease without esophagitis (4) Hypertension Priority: Secondary Status: Chronic Qualifiers: Hypertension type: essential hypertension Qualified Code(s): I10 - Essential (primary) hypertension - Discharge Medications Prescriptions: Omeprazole [PriLOSEC] 40 mg PO DAILY #30 cap Home Medications: Aspirin 325 mg PO QAM 08/11/15 [History] Atorvastatin Calcium [Lipitor] 80 mg PO QAM 08/11/15 [History] Hydrochlorothiazide 25 mg PO QAM 08/11/15 [History] Insulin Glargine,Hum.rec.anlog [Lantus Solostar] 60 unit SQ HS 08/11/15 [History ] Insulin Glargine,Hum.rec.anlog [Lantus Solostar] 70 unit SQ QAM 08/11/15 [ History] Insulin Lispro Protamin/Lispro [Humalog Mix 75-25 Kwikpen] 5 - 18 unit SQ TIDAC 08/11/15 [History] Liraglutide [Victoza 2-Jarad] 1.2 mg SQ QAM 08/11/15 [History] Lisinopril [Zestril] 20 mg PO QAM 08/11/15 [History] Metoprolol [Lopressor] 50 mg PO BID 08/11/15 [History] Nitroglycerin 0.4 mg SL Q5MIN PRN 08/11/15 [History] Ranitidine HCl [Zantac] 150 mg PO BID 08/11/15 [History] Isosorbide MONOnitrate [Isosorbide Mononitrate] 30 mg PO DAILY 12/01/15 [History ] Omeprazole [PriLOSEC] 40 mg PO DAILY #30 cap 11/14/16 [Rx] Allergies/Adverse Reactions: Allergies dicyclomine Adverse Reaction (Verified 11/12/16 10:44) Hives metformin Adverse Reaction (Verified 11/12/16 10:44) Blurry Vision Procedures/tests Complete & Pending: Procedures Performed prior 72 hours Category Date Time Status NM aidan perf SPECT multi [NM] Routine Exams 11/13/16 07:00 Taken SP pharm nuclear stress Routine Y 11/13/16 08:19 Completed Date of admission: 11/12/16 12:22 Primary care physician: Dean Tim MD Consults: 11/12/16 20:44 Consult to Cardiology [CONS] Routine Comment: Consulting Provider: Cardiology Nikki Reason for Consult: unstable angina Time Notified: 17:00 Call Completed: Yes Discharging clinician: Latrice Keyes Anticipated date of discharge: 11/14/16 - Patient Status Disposition: Home, Self-Care Condition: Good Functional capacity at discharge: independent ambulation Overall status at discharge: patient is progressing back to baseline - Discharge Instructions Instructions: Diabetes Mellitus Type 2 in Adults (DC) Follow Up With: Dean Tim MD [Primary Care Provider] - Forms: ED Satisfaction Letter - Diet and Activity Activity: increase activity as tolerated Diet: diabetic diet, low fat, low cholesterol, low salt diet Hospital course: Ms. Hill is a 56 year old female with a history of gastroesophageal reflux disease, hypertension and diabetes mellitus type 2 was observed in the hospital after presenting with chest pain. The pain was burning in nature and was radiating from the left side of her chest and right and intermittent. Not associated with any diet. She was evaluated with EKG, troponins and telemetry. She did not show any signs of ischemia on EKG. Her troponins have been negative. She was evaluated by cardiology and recommended cardiac stress test. Cardiac stress test was negative for any acute abnormalities or signs of ischemia. Presently, her chest pain has improved. The patient was previously on PPI for gastroesophageal reflux disease but was advised to stop it for a period of 3 months for insurance reasons. This could have exacerbated her symptoms and cause her chest pain. I would recommend restarting PPI at this time to control her symptoms. She is now stable to be discharged. Patient follow-up with her primary care provider for further management. - Time Spent with Patient Total time spent providing and/or coordinating discharge services: Less than 30 minutes (25 min) - Constitutional Vitals: Temp Pulse Resp BP Pulse Ox 97.8 F 77 16 148/67 99 11/14/16 07:56 11/14/16 07:56 11/14/16 07:56 11/14/16 07:56 11/14/16 07:56 General appearance: Present: cooperative, A&O X 3, pleasant, no acute distress, obese - Respiratory Respiratory exam: Present: CTAB. Absent: accessory muscle use, rales, rhonchi, wheezes - Cardiovascular Cardiovascular exam: Present: RRR, +S1, +S2. Absent: diastolic murmur, gallop, rubs, systolic murmur - GI/Abdominal GI/Abdominal exam: Present: normal bowel sounds, soft, no peritoneal signs. Absent: distended, tenderness - Extremities Exam Extremities exam: Present: warm, radial pulses palpable and symetrical. Absent : calf tenderness, cyanotic, pedal edema - Attending Attestation This document has been at least partially created by [employer] recognition technology by Dr. Keyes. Errors in grammar, wording or other phrases may exist. If errors are found after the documentation is signed, they will be addressed individually in the addendum section of this document when appropriate.
== END 2016-11-14 12:49 | disposition home or self-care (01) ==
LOC: 3BNU 10:34 → EMEROO 10:34 → SUATTDRO 12:22 → 3BNU 12:35
PROVIDERS: ADMIT Nurse Practitioner Family; ATTEND Internal Medicine

== ENCOUNTER 2018-06-29 08:05 | Observation (INO) ==
--- NOTE | 2018-06-29 08:10 | Emergency Department Note ---
Disposition Clinical Impression: Chest pain Qualifiers: Chest pain type: unspecified Qualified Code(s): R07.9 - Chest pain, unspecified Disposition: Admitted As Inpatient Condition: Good Referrals: Dean Tim MD [Primary Care Provider] - Forms: ED Satisfaction Letter Time of Disposition: 09:28 Chest Pain HPI - General Chief Complaint: ED Chest Pain Stated Complaint: CP Time Seen by Provider: 06/29/18 08:10 Source: patient Mode of arrival: ambulatory Limitations: no limitations Vital Signs Reviewed: Yes Nursing Notes Reviewed: Yes - History of Present Illness HPI Narrative: Patient is a 58-year-old female with past medical history of CAD, previous CT with stent placement 1, diabetes, hypertension, high cholesterol. She presents today due to chest discomfort. She states that the pain woke her up out of sleep around 6 AM, approximately 2-1/2 hours prior to arrival. She describes the pain as a pressure/ache in the center of her chest with no radiation, rated a 10 out of 10 when it woke her up. No worsening with exertion. Mild shortness of breath associated. Also had associated nausea and one episode of vomiting. Denies any other fevers, productive cough, abdominal pain, dysuria, hematuria. She does state that this feels similar to when she had a previous CT the required a stent placement. She took one nitroglycerin tablet and states that this took her pain from a 10 down to a 7. She took this approximately 6:30 AM. She has not taken any aspirin today. She states that she usually takes aspirin 325 mg daily. Severity scale (1-10): 7 - Related Data Home Medications Medication Instructions Recorded Confirmed Aspirin 325 mg PO QAM 08/11/15 11/20/17 Atorvastatin Calcium [Lipitor] 80 mg PO QAM 08/11/15 11/20/17 Hydrochlorothiazide 25 mg PO QAM 08/11/15 11/20/17 Insulin Glargine,Hum.rec.anlog 60 unit SQ HS 08/11/15 11/20/17 [Lantus Solostar] Insulin Glargine,Hum.rec.anlog 70 unit SQ QAM 08/11/15 11/20/17 [Lantus Solostar] Insulin Lispro Protamin/Lispro 5 - 18 unit SQ TIDAC 08/11/15 11/20/17 [Humalog Mix 75-25 Kwikpen] Liraglutide [Victoza 2-Jarad] 1.6 mg SQ QAM 08/11/15 11/20/17 Lisinopril [Zestril] 20 mg PO QAM 08/11/15 11/20/17 Metoprolol [Lopressor] 50 mg PO BID 08/11/15 11/20/17 Nitroglycerin 0.4 mg SL Q5MIN PRN 08/11/15 11/20/17 Ranitidine HCl [Zantac] 150 mg PO BID 08/11/15 11/20/17 Levomefolate/B6/B12/Algal Oil 1 each PO BID 02/02/17 11/20/17 [Metanx Capsule] Isosorbide MONOnitrate [Isosorbide 30 mg PO QAM 07/17/17 11/20/17 Mononitrate] Previous Rx's Medication Instructions Recorded Brompheniramine/Pseudoephed/Dm 5 ml PO Q4-6H PRN #120 syrup 11/19/17 [Bromfed Dm Cough Syrup] Albuterol Sulfate [Albuterol 2 puff IH Q6HR #1 hfa.aer.ad 11/20/17 Inhaler] predniSONE [PredniSONE] 20 mg PO DAILY #16 tablet 11/20/17 Allergies Allergy/AdvReac Type Severity Reaction Status Date / Time dicyclomine AdvReac Hives Verified 06/29/18 09:35 metformin AdvReac Blurry Verified 06/29/18 09:35 Vision All systems ED: reviewed and negative except as stated. Constitutional: Denies: fever Cardiovascular: Reports: chest pain Respiratory: Reports: dyspnea. Denies: cough, wheezes Gastrointestinal: Reports: nausea, vomiting. 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 Absent : tenderness, rash - Respiratory Respiratory exam: Present: normal lung sounds bilaterally. Absent: respiratory distress, wheezes - Cardiovascular Cardiovascular exam: Present: regular rate, normal rhythm, normal heart sounds - Abdominal Exam Abdominal exam: Present: soft, Non-Tender. Absent: tenderness, distention, guarding, rebound, rigidity - Extremities Exam Extremities exam: Present: normal inspection, full ROM. Absent: tenderness, pedal edema, calf tenderness - Neurological Exam Neurological exam: Present: alert, oriented X3 - Psychiatric Psychiatric exam: Present: normal affect, normal mood - Skin Skin exam: Present: warm, dry, intact, normal color Course Course Narrative: Vitals currently stable. Physical exam shows heart regular rate and rhythm, lungs clear to auscultation, no reproducible chest discomfort, abdomen soft and nontender. EKG shows normal sinus rhythm with no acute ST changes. We will proceed with cardiac workup including chest x-ray, basic blood work, troponin. We will give the patient nitroglycerin trial, aspirin 325 mg. We will also give Zofran for nausea. Patient has a high heart score and will need admission or chest pain rule out once labs return. 08:56 Patient reassessed. Pain is now a 0 out of 10 after 2 nitroglycerin tablets. Chest x-ray negative. Currently waiting on troponin level, BMP. Patient agreeable with admission. 09:03 Troponin negative. Currently waiting on BMP. 09:27 BMP shows no major electrolyte abnormalities. We will proceed with admission at this time. Vital Signs Temperature 97.8 F 06/29/18 08:06 Pulse Rate 87 06/29/18 08:06 Respiratory Rate 18 06/29/18 08:06 Blood Pressure 142/84 06/29/18 08:06 O2 Sat by Pulse Oximetry 98 06/29/18 08:06 Temperature 97.8 F 06/29/18 08:12 Pulse Rate 92 06/29/18 08:43 Respiratory Rate 16 06/29/18 08:22 Blood Pressure 130/66 06/29/18 08:43 O2 Sat by Pulse Oximetry 100 06/29/18 08:22 Oxygen Delivery Oxygen Delivery Room Air Chest Pain - MDM Narrative Medical decision making narrative: Vitals currently stable. Physical exam shows heart regular rate and rhythm, lungs clear to auscultation, no reproducible chest discomfort, abdomen soft and nontender. EKG shows normal sinus rhythm with no acute ST changes. We will proceed with cardiac workup including chest x-ray, basic blood work, troponin. We will give the patient nitroglycerin trial, aspirin 325 mg. We will also give Zofran for nausea. Patient has a high heart score and will need admission or chest pain rule out once labs return. 08:56 Patient reassessed. Pain is now a 0 out of 10 after 2 nitroglycerin tablets. Chest x-ray negative. Currently waiting on troponin level, BMP. Patient agreeable with admission. 09:03 Troponin negative. Currently waiting on BMP. 09:27 BMP shows no major electrolyte abnormalities. We will proceed with admission at this time. - Medical Records Medical records reviewed: Yes I reviewed the patient's medical records. - Lab Data Lab results reviewed: Yes I reviewed the patient's lab results. Result diagrams: 06/29/18 08:20 06/29/18 08:20 Lab Results 06/29/18 06/29/18 06/29/18 Range/Units 08:20 08:20 08:20 WBC 15.9 H (4.3-11.1) K/mcL RBC 4.45 (3.82-4.97) M/mcL Hgb 12.1 (11.5-15.4) g/dL Hct 37.8 (35.3-44.9) % MCV 84.9 (83.0-100.0) fL MCH 27.2 L (28.0-33.3) pg MCHC 32.0 (31.6-35.5) g/dL RDW 13.9 (11.5-14.5) % Plt Count 352 (140-400) K/mcL MPV 9.4 (9.4-12.4) fL Immature Gran % 0.6 (0-4) % Seg Neutrophils % 76.8 % Lymphocytes % 12.3 % Monocytes % 8.6 % Eosinophils % 1.2 % Basophils % 0.5 % Neutrophils # 12.2 H (1.6-8.9) K/mcL Lymphocytes # 2.0 (0.6-4.6) K/mcL Monocytes # 1.4 H (0.0-1.3) K/mcL Eosinophils # 0.2 (0.0-0.6) K/mcL Basophils # 0.1 (0.0-0.2) K/mcL PT 10.4 (9.4-12.1) Seconds INR 0.9 APTT 30.3 (26.0-36.0) Seconds Sodium 137 (136-145) mEq/L Potassium 3.5 (3.5-5.1) mEq/L Chloride 103 (98-107) mEq/L Carbon Dioxide 27 (23-29) mEq/L BUN 23 H (6-20) mg/dL Creatinine 0.96 (0.60-1.20) mg/dL Est GFR ( Amer) > 60 (> 60) Est GFR (Non-Af Amer) 60 (> 60) BUN/Creatinine Ratio 24 (6-26) Glucose 180 H (70-105) mg/dL Calculated Osmolality 292 (280-300) Calcium 9.2 (8.6-10.3) mg/dL Troponin I < 0.03 (< 0.04) ng/mL - Radiology Data Radiology results reviewed: Yes I reviewed the patient's radiology results. - EKG Data EKG attestation: Yes I reviewed and interpreted this EKG. EKG results narrative: 06/29/2018 at 08:13. Normal sinus rhythm. Rate 90. HI 156. QRS 80. QTC 473. Normal axis. No acute ST elevation or depression. Heart Score - Score History: Moderately Suspicious EKG: Normal Age: 45-65 Risk Factors: Equal/Greater than 3 risk factor or history of atherosclerotic disease Troponin: Less than normal limit HEART Score Total: 4 S.B.A.R. - S.B.A.R. Situation: Demographics, MOA Background: Presenting Complaint, Relevant PMH, Meds, & Allergies Assessment: Vital Signs, Course and respsone to treatment, Exam Concerns, Patient/Family Expectation, Pertinant Lab Results Recommendation: Barrier(s) to disposition, Recommendation based on pending studies, treatments, or consults S.B.A.R. Report Given to: Dr. Hampton S.B.AYemi Repor Time: 09:27
--- NOTE | 2018-06-29 08:17 | Emergency Department Note ---
Disposition Clinical Impression: Chest pain Disposition: Admitted As Inpatient Condition: Good General Adult HPI - General Chief complaint: ED Chest Pain Stated complaint: CP Time Seen by Provider: 06/29/18 08:10 Source: patient Mode of arrival: ambulatory Limitations: no limitations - History of Present Illness Pain Scale: 7 - Related Data Home Medications Medication Instructions Recorded Confirmed Atorvastatin Calcium [Lipitor] 80 mg PO QAM 08/11/15 06/29/18 Insulin Lispro Protamin/Lispro 5 - 18 unit SQ TIDAC 08/11/15 06/29/18 [Humalog Mix 75-25 Kwikpen] Liraglutide [Victoza 2-Jarad] 1.6 mg SQ QAM 08/11/15 06/29/18 Metoprolol [Lopressor] 50 mg PO BID 08/11/15 06/29/18 Levomefolate/B6/B12/Algal Oil 1 each PO BID 02/02/17 06/29/18 [Metanx Capsule] Isosorbide MONOnitrate [Isosorbide 30 mg PO QAM 07/17/17 06/29/18 Mononitrate] Aspirin 325 mg PO DAILY 06/29/18 06/29/18 Insulin Glargine,Hum.rec.anlog 60 unit SQ QPM PRN 06/29/18 06/29/18 [Basaglar Kwikpen U-100] Insulin Glargine,Hum.rec.anlog 70 unit SQ QAM 06/29/18 06/29/18 [Basaglar Kwikpen U-100] Nitroglycerin [Nitrostat] 0.4 mg SL AD PRN 06/29/18 06/29/18 Ranitidine HCl [Acid Supply Technician] 150 mg PO BID 06/29/18 06/29/18 Sucralfate [Carafate] 1 gm PO BID PRN 06/29/18 06/29/18 hydroCHLOROthiazide 25 mg PO DAILY 06/29/18 06/29/18 [Hydrochlorothiazide] Allergies Allergy/AdvReac Type Severity Reaction Status Date / Time dicyclomine AdvReac Hives Verified 06/29/18 09:35 metformin AdvReac Blurry Verified 06/29/18 09:35 Vision Past Medical History - Past Medical History Medical history: Reports: coronary artery disease, diabetes, hyperlipidemia, hypertension, myocardial infarction Surgical history: Reports: angioplasty/stent, cholecystectomy, hysterectomy Psychiatric history: Reports: depression 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 - Social History Smoking Status: Never smoker Smokeless Tobacco Status: No Alcohol use: Reports: none Drug use: Reports: none Physical Exam - General Limitations: no limitations Course Vital Signs Temperature 97.8 F 06/29/18 08:06 Pulse Rate 87 06/29/18 08:06 Respiratory Rate 18 06/29/18 08:06 Blood Pressure 142/84 06/29/18 08:06 O2 Sat by Pulse Oximetry 98 06/29/18 08:06 Temperature 98 F 06/29/18 15:43 Pulse Rate 93 06/29/18 15:43 Respiratory Rate 16 06/29/18 15:43 Blood Pressure 108/71 06/29/18 15:43 O2 Sat by Pulse Oximetry 97 06/29/18 15:43 Oxygen Delivery Oxygen Delivery Room Air Medical Decision Making - Lab Data Result diagrams: 06/29/18 08:20 06/29/18 08:20 Lab Results 06/29/18 06/29/18 06/29/18 Range/Units 08:20 08:20 08:20 WBC 15.9 H (4.3-11.1) K/mcL RBC 4.45 (3.82-4.97) M/mcL Hgb 12.1 (11.5-15.4) g/dL Hct 37.8 (35.3-44.9) % MCV 84.9 (83.0-100.0) fL MCH 27.2 L (28.0-33.3) pg MCHC 32.0 (31.6-35.5) g/dL RDW 13.9 (11.5-14.5) % Plt Count 352 (140-400) K/mcL MPV 9.4 (9.4-12.4) fL Immature Gran % 0.6 (0-4) % Seg Neutrophils % 76.8 % Lymphocytes % 12.3 % Monocytes % 8.6 % Eosinophils % 1.2 % Basophils % 0.5 % Neutrophils # 12.2 H (1.6-8.9) K/mcL Lymphocytes # 2.0 (0.6-4.6) K/mcL Monocytes # 1.4 H (0.0-1.3) K/mcL Eosinophils # 0.2 (0.0-0.6) K/mcL Basophils # 0.1 (0.0-0.2) K/mcL PT 10.4 (9.4-12.1) Seconds INR 0.9 APTT 30.3 (26.0-36.0) Seconds Sodium 137 (136-145) mEq/L Potassium 3.5 (3.5-5.1) mEq/L Chloride 103 (98-107) mEq/L Carbon Dioxide 27 (23-29) mEq/L BUN 23 H (6-20) mg/dL Creatinine 0.96 (0.60-1.20) mg/dL Est GFR ( Amer) > 60 (> 60) Est GFR (Non-Af Amer) 60 (> 60) BUN/Creatinine Ratio 24 (6-26) Glucose 180 H (70-105) mg/dL Calculated Osmolality 292 (280-300) Calcium 9.2 (8.6-10.3) mg/dL Troponin I < 0.03 (< 0.04) ng/mL Attestation Statement - Attestation Attestation: I examined this patient and my medical decision-making was reviewed with the Resident Physician. I agree with the documented findings, disposition and treatment plan as described except to the extent set forth below. Face to face time provided Patient evaluated upon arrival with Dr. Pollock. ECG reviewed by me. Patient in no acute distress
[2018-06-29] MEDS ORDERED: Aspirin 81 MG TAB.CHEW PO ONE (08:18)
[2018-06-29] MEDS ORDERED: Ondansetron 4 MG/2 ML VIAL IVP ONE (08:21)
[2018-06-29] MEDS: Nitroglycerin 0.4 MG TAB.SUBL SL ONE ×2 (08:31→08:37)
[2018-06-29 08:41] LABS: Basophils # 0.1 K/mcL (0.0-0.2); Basophils % 0.5 %; Eosinophils # 0.2 K/mcL (0.0-0.6); Eosinophils % 1.2 %; Hematocrit 37.8 % (35.3-44.9); Hemoglobin 12.1 g/dL (11.5-15.4); Immature Granulocytes % 0.6 % (0-4); Lymphocytes % 12.3 %; Mean Corpuscular Hemoglobin 27.2 pg (28.0-33.3); Mean Corpuscular Volume 84.9 fL (83.0-100.0); Mean Platelet Volume 9.4 fL (9.4-12.4); Monocytes # 1.4 K/mcL (0.0-1.3); Monocytes % 8.6 %; Neutrophils # 12.2 K/mcL (1.6-8.9); Platelet Count 352 K/mcL (140-400); Red Blood Count 4.45 M/mcL (3.82-4.97); Red Cell Distribution Width 13.9 % (11.5-14.5); Segmented Neutrophils % 76.8 %
[2018-06-29 08:47] LABS: INR 0.9; Prothrombin Time 10.4 Seconds (9.4-12.1)
[2018-06-29 08:49] LABS: Activated Partial Thrombo Time 30.3 Seconds (26.0-36.0)
[2018-06-29 09:00] LABS: Troponin I < 0.03 ng/mL (< 0.04)
[2018-06-29 09:24] LABS: BUN/Creatinine Ratio 24 (6-26); Blood Urea Nitrogen 23 mg/dL (6-20); Calcium 9.2 mg/dL (8.6-10.3); Carbon Dioxide 27 mEq/L (23-29); Chloride 103 mEq/L (98-107); Glucose 180 mg/dL (70-105); Osmolality,Calculated 292 (280-300); Potassium 3.5 mEq/L (3.5-5.1); Sodium 137 mEq/L (136-145); eGFR For Non-African Americans 60 (> 60)
[2018-06-29] MEDS ORDERED: Naloxone 0.4 MG/ML INJ IVP PRN (09:31)
[2018-06-29] MEDS ORDERED: Nitroglycerin 0.4 MG TAB.SUBL SL PRN (09:35)
[2018-06-29] MEDS ORDERED: Dextrose Gel 15 GM/37.5 ML TUBE PO PRN ×2 (09:38)
[2018-06-29] MEDS ORDERED: D5% in Water 1,000 ML IVC PRN (09:38)
[2018-06-29] MEDS ORDERED: *HR* Dextrose 50 % in Water (Syg) 50 ML SYRINGE IVP PRN (09:38)
[2018-06-29] MEDS ORDERED: Acetaminophen 325 MG TABLET PO PRN (09:42)
[2018-06-29] MEDS ORDERED: Sucralfate 1 GM TABLET PO PRN (10:20)
--- NOTE | 2018-06-29 10:29 | Internal Med History&Physical ---
Date of Encounter: 06/29/18 Time of Encounter: 10:00 Internal Medicine - H&P: HPI Chief complaint: Chest pain History of present illness: Ms. Hill is a 58 year old female with pmh of diabetes, hypertension, NM s/p stent about 3 years ago presenting with complaints of chest pain that started about 6 am today and woke her up from sleep. Patient had been at her baseline and denies any recent illnesses prior to this episode of chest pain. Pain was described as a 10/10 midsternal chest tightness accompanied with some shortness of breath. She also had nausea and vomiting. Had some loose stools as well which only started today. Denies any fevers, admits to occasional chills. She came to the ER because pain was constant and was similar to her prior heart attack In the ER, she got nitroglycerin which relieved her chest pain. She is being admitted to rule out ACS Past Med Surg Social Fam HX - Past Medical History Medical history: coronary artery disease, diabetes, hyperlipidemia, hypertension , myocardial infarction Additional medical history: Diverticulitis Psychiatric history: depression - Past Surgical History Surgical History: angioplasty/stent, cholecystectomy, hysterectomy - Social History Smoking Status: Never smoker Smokeless Tobacco Status: No Alcohol use: none Drug use: none - Family History Sister Living Status: Still Living Hx Family Cancer: Yes Mother Living Status: Hx Family Cardiac Disorders: Yes Internal Medicine - H&P: Meds Atorvastatin Calcium [Lipitor] 80 mg PO QAM 08/11/15 [History] Insulin Lispro Protamin/Lispro [Humalog Mix 75-25 Kwikpen] 5 - 18 unit SQ TIDAC 08/11/15 [History] Liraglutide [Victoza 2-Jarad] 1.6 mg SQ QAM 08/11/15 [History] Metoprolol [Lopressor] 50 mg PO BID 08/11/15 [History] Levomefolate/B6/B12/Algal Oil [Metanx Capsule] 1 each PO BID 02/02/17 [History] Isosorbide MONOnitrate [Isosorbide Mononitrate] 30 mg PO QAM 07/17/17 [History] Aspirin 325 mg PO DAILY 06/29/18 [History] Insulin Glargine,Hum.rec.anlog [Basaglar Kwikpen U-100] 60 unit SQ QPM PRN 06/29 [History] Insulin Glargine,Hum.rec.anlog [Basaglar Beliapen U-100] 70 unit SQ QAM 06/29/18 [History] Nitroglycerin [Nitrostat] 0.4 mg SL AD PRN 06/29/18 [History] Ranitidine HCl [Acid Marketing Content Coordinator] 150 mg PO BID 06/29/18 [History] Sucralfate [Carafate] 1 gm PO BID PRN 06/29/18 [History] hydroCHLOROthiazide [Hydrochlorothiazide] 25 mg PO DAILY 06/29/18 [History] 3 Allergy/AdvReac Type Severity Reaction Status Date / Time dicyclomine AdvReac Hives Verified 06/29/18 09:35 metformin AdvReac Blurry Verified 06/29/18 09:35 Vision All Systems PM: A 10-system review of systems was performed and is negative for pertinent findings except as documented above in the HPI. - Constitutional Constitutional: no chills, no fever(s), no night sweats - EENT Eyes: no change in vision, no discharge, no pain, no photophobia Ears: no ear discharge, no ear pain, no tinnitus Nose, mouth and throat: no dysphagia, no nasal discharge, no neck pain, no sore throat - Cardiovascular Cardiovascular ROS IM: chest pain, dyspnea, dyspnea on exertion, no diaphoresis , no lightheadedness, no palpitations, no syncope - Respiratory Respiratory: dyspnea, no cough, no wheezing, no excessive phlegm production - Gastrointestinal Gastrointestinal: no abdominal pain, no diarrhea, no hematemesis, no hematochezia, no melena, no nausea, no vomiting - Genitourinary Genitourinary: no change in urinary stream, no dysuria, no flank pain, no hematuria - Musculoskeletal Musculoskeletal ROS IM: no numbness, no tingling - Integumentary Integumentary IM: no rash, no unusual bruising - Neurological Neurological ROS: no confusion, no convulsions, no focal weakness, no numbness, no tingling, no tremor(s) - Hematologic/Lymphatic Hematologic/Lymphatic: no easy bruising - Constitutional Vitals: Temp Pulse Resp BP Pulse Ox 97.8 F 83 15 130/73 99 06/29/18 08:12 06/29/18 09:39 06/29/18 09:39 09/16/18 09:39 06/29/18 09:39 Exam: NAD - Head Head exam: Present: atraumatic, normocephalic - Eye Eye exam: Present: PERRL, conjuntiva pink, sclera anicteric Pupils: Present: PERRL - Neck Neck exam general surgery: Present: supple, trachea midline. Absent: lymphadenopathy - Respiratory Respiratory exam: Present: CTAB. Absent: accessory muscle use, rales, rhonchi, wheezes - Cardiovascular Cardiovascular exam: Present: RRR, +S1, +S2. Absent: diastolic murmur, gallop, rubs, systolic murmur - GI/Abdominal GI/Abdominal exam: Present: normal bowel sounds, soft, no peritoneal signs. Absent: distended, tenderness - Extremities Exam Extremities exam: Present: warm, radial pulses palpable and symmetrical. Absent : calf tenderness, cyanotic, pedal edema - Neurological Exam Neurological exam: Present: CN II-XII intact, oriented X3, no focal deficits. Absent: pronater drift, facial droop, speech deficit - Skin Skin exam: Present: dry, intact Internal Med - H&P Results - Labs CBC & Chem 7: 06/29/18 08:20 06/29/18 08:20 - Assessment and plan (1) Chest pain Current Visit: Yes Status: Acute Assessment and plan: Pt complains of midsternal chest pain of 1 day duration. Has risk factors for CAD including prior NM, hypertension, diabetes Received aspirin and nitroglycerin in Er. Trend troponins, obtain 2D echo. Continue aspirin and statin Qualifiers: Chest pain type: unspecified Qualified Code(s): R07.9 - Chest pain, unspecified (2) Leukocytosis, unspecified Current Visit: Yes Status: Acute Assessment and plan: Pt has leukocytosis. Has history of diverticulitis Had some nausea, vomiting and diarrhea this am, multiple episodes. Denies fevers / abdominal pain. No diarrhea prior to this am Obtain CT abdomen, blood cultures, will hold off on antibiotics pending results Qualifiers: Leukocytosis type: unspecified Qualified Code(s): D72.829 - Elevated white blood cell count, unspecified (3) Hypertension Current Visit: Yes Status: Chronic Assessment and plan: continue home meds. 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 (5) GERD (gastroesophageal reflux disease) Current Visit: No Status: Chronic Assessment and plan: On ranitidine Qualifiers: Esophagitis presence: without esophagitis Qualified Code(s): K21.9 - Gastro -esophageal reflux disease without esophagitis (6) Hyperlipemia Current Visit: No Status: Chronic Assessment and plan: On statin Qualifiers: Hyperlipidemia type: unspecified Qualified Code(s): E78.5 - Hyperlipidemia , unspecified (7) DVT prophylaxis Current Visit: Yes Status: Acute Assessment and plan: on heparin sc - Time Spent With Patient Total time spent is greater than 50% in coordination of care (as documented) at patient's floor/unit and/or counseling patient:
[2018-06-29] MEDS ORDERED: Isovue-370 500 ML INFUS..BTL IV ONE (10:30)
[2018-06-29 10:48] LABS: Estimated Average Glucose 166 mg/dl; Hemoglobin A1C 7.4 %
[2018-06-29] MEDS: Insulin LISPRO 300 UNITS/3 ML VIAL SQ SCH ×2 (12:08→17:49)
[2018-06-29] MEDS: Lisinopril 20 MG TABLET PO SCH (15:31)
[2018-06-29] MEDS: *HR* Heparin 5,000 UNIT/ML VIAL SQ SCH (17:49)
[2018-06-29] MEDS: Famotidine 20 MG TABLET PO SCH (19:51)
[2018-06-29] MEDS: Insulin DETEMIR 100 UNIT/ML X5UNITS SQ SCH (21:45)
[2018-06-30] MEDS: *HR* Heparin 5,000 UNIT/ML VIAL SQ SCH ×2 (05:16→17:19)
[2018-06-30 06:18] LABS: Basophils # 0.1 K/mcL (0.0-0.2); Basophils % 0.6 %; Eosinophils # 0.2 K/mcL (0.0-0.6); Eosinophils % 1.6 %; Hematocrit 36.4 % (35.3-44.9); Hemoglobin 11.6 g/dL (11.5-15.4); Immature Granulocytes % 0.5 % (0-4); Lymphocytes # 2.1 K/mcL (0.6-4.6); Lymphocytes % 18.1 %; Mean Corpuscular HGB Conc 31.9 g/dL (31.6-35.5); Mean Corpuscular Hemoglobin 27.3 pg (28.0-33.3); Mean Corpuscular Volume 85.6 fL (83.0-100.0); Mean Platelet Volume 9.6 fL (9.4-12.4); Monocytes # 1.2 K/mcL (0.0-1.3); Monocytes % 9.7 %; Neutrophils # 8.2 K/mcL (1.6-8.9); Platelet Count 344 K/mcL (140-400); Red Blood Count 4.25 M/mcL (3.82-4.97); Red Cell Distribution Width 13.9 % (11.5-14.5); Segmented Neutrophils % 69.5 %
[2018-06-30 06:32] LABS: BUN/Creatinine Ratio 16 (6-26); Blood Urea Nitrogen 15 mg/dL (6-20); Calcium 9.2 mg/dL (8.6-10.3); Carbon Dioxide 28 mEq/L (23-29); Chloride 104 mEq/L (98-107); Glucose 111 mg/dL (70-105); Magnesium 1.7 mg/dL (1.6-2.6); Osmolality,Calculated 288 (280-300); Sodium 138 mEq/L (136-145); eGFR For Non-African Americans > 60 (> 60)
[2018-06-30] MEDS: Insulin LISPRO 300 UNITS/3 ML VIAL SQ SCH ×3 (07:59→17:19)
--- NOTE | 2018-06-30 08:23 | Internal Med Progress Note ---
Hospitalist Progress Note - Encounter Date of Encounter: 06/30/18 Time of Encounter: 08:21 - Subjective Interval History: Patient seen and examined at bedside. Currently she denies any CP She has had diarrhea this am however she states this not uncommon and that her stool is normally loose. CT of ABD with no acute findings, she has had off and on chest pain over night. we will stress her today, she will be 2 day stress which she verbalizes understanding - Exam Vitals: Temp Pulse Resp BP Pulse Ox 97.8 F 71 18 126/79 99 06/30/18 07:25 06/30/18 07:25 06/30/18 07:25 06/30/18 07:25 06/30/18 07:25 Exam: Head Head exam: Present: atraumatic, normocephalic - Eye Eye exam: Present: PERRL, conjuntiva pink, sclera anicteric Pupils: Present: PERRL - Neck Neck exam general surgery: Present: supple, trachea midline. Absent: lymphadenopathy - Respiratory Respiratory exam: Present: CTAB. Absent: accessory muscle use, rales, rhonchi, wheezes - Cardiovascular Cardiovascular exam: Present: RRR, +S1, +S2. Absent: diastolic murmur, gallop, rubs, systolic murmur - GI/Abdominal GI/Abdominal exam: Present: normal bowel sounds, soft, no peritoneal signs. Absent: distended, tenderness - Extremities Exam Extremities exam: Present: warm, radial pulses palpable and symmetrical. Absent : calf tenderness, cyanotic, pedal edema - Neurological Exam Neurological exam: Present: CN II-XII intact, oriented X3, no focal deficits. Absent: pronater drift, facial droop, speech deficit - Skin Skin exam: Present: dry, intact - Assessment and Plan (1) Chest pain Current Visit: Yes Status: Acute Assessment and Plan: Pt complains of midsternal chest pain of 1 day duration. Has risk factors for CAD including prior VA, hypertension, diabetes Received aspirin and nitroglycerin in Er. Trend troponins, obtain 2D echo. Continue aspirin and statin 06/30 Trop negative x3 echo: Impressions: LVEF 65%. Normal LV chamber size, wall thickness and function. Normal right ventricular structure and function. No significant valvular dysfunction. No pulmonary hypertension. Estimated RA pressure is 5 mmHg. Has had CP off and on overnight- CT of Abd with nothing acute, we will proceed with cardiac stress today - she has been NPO (2) Hypertension Current Visit: Yes Status: Chronic Assessment and Plan: continue home meds. Stable at this time. She did have some low BP overnight we will monitor (3) Hyperlipemia Current Visit: No Status: Chronic Assessment and Plan: On statin (4) GERD (gastroesophageal reflux disease) Current Visit: No Status: Chronic Assessment and Plan: On ranitidine (5) Type 2 diabetes mellitus Current Visit: Yes Status: Chronic Assessment and Plan: Continue long and short acting sc insulin (6) DVT prophylaxis Current Visit: Yes Status: Acute Assessment and Plan: on heparin sc (7) Leukocytosis, unspecified Current Visit: Yes Status: Acute Assessment and Plan: Pt has leukocytosis. Has history of diverticulitis Had some nausea, vomiting and diarrhea this am, multiple episodes. Denies fevers / abdominal pain. No diarrhea prior to this am Obtain CT abdomen, blood cultures, will hold off on antibiotics pending results 06/30 - Abd pain improved no N/V states that diarrhea is chronic - No fevers, white count back to baseline CT of abd with nothing acute - suspect leukocytosis is reactive - Time Spent with Patient Total time spent is greater than 50% in coordination of care (as documented) at patient's floor/unit and/or counseling patient: Internal Medicine: Result - Labs CBC & Chem 7: 06/30/18 05:51 06/30/18 05:51 Labs: Short CBC 06/30/18 Range/Units 05:51 WBC 11.8 H (4.3-11.1) K/mcL Hgb 11.6 (11.5-15.4) g/dL Hct 36.4 (35.3-44.9) % Plt Count 344 (140-400) K/mcL Neutrophils # 8.2 (1.6-8.9) K/mcL BMP 06/30/18 05:51 Sodium 138 Potassium 4.0 Chloride 104 Carbon Dioxide 28 BUN 15 Creatinine 0.94 Glucose 111 H Calcium 9.2 Cardiac Enzymes 06/29/18 06/29/18 06/29/18 Range/Units 10:21 14:51 21:58 Troponin I < 0.03 < 0.03 < 0.03 (< 0.04) ng/mL - ABG Interpretation ABG results: PT/INR, D-dimer PT 10.4 Seconds (9.4-12.1) 06/29/18 08:20 - Impressions Impressions Abdomen/Pelvis CT 06/29/18 13:00 IMPRESSION: 1. Diverticulosis without diverticulitis. 2. Normal appendix. 3. Cholecystectomy. D/ / 06/29/2018 15:28:55 Marlon Mckeon MD / asad Interpreting Provider: Marlon Mckeon MD Consult Discharge Plan - Plan [place] [facility] [place] [Primary Care Provider] - (1) Chest pain Qualifiers: Chest pain type: unspecified Qualified Code(s): R07.9 - Chest pain, unspecified (2) Hypertension Qualifiers: Hypertension type: essential hypertension Qualified Code(s): I10 - Essential (primary) hypertension (3) Hyperlipemia Qualifiers: Hyperlipidemia type: unspecified Qualified Code(s): E78.5 - Hyperlipidemia, unspecified (4) GERD (gastroesophageal reflux disease) Qualifiers: Esophagitis presence: without esophagitis Qualified Code(s): K21.9 - Gastro- esophageal reflux disease without esophagitis (5) Type 2 diabetes mellitus Qualifiers: Diabetes mellitus long-term insulin 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
[2018-06-30] MEDS ORDERED: Aspirin 325 MG TABLET PO SCH (09:00)
[2018-06-30] MEDS ORDERED: NON-FORMULARY MEDICATION 1 EACH EACH (Insulin Glargine,Hum.Rec.Anlog [Basaglar Kwikpen U-1 SQ SCH (09:00)
[2018-06-30] MEDS ORDERED: Regadenoson 0.4 MG/5 ML SYRINGE IVP ONE (09:48)
[2018-06-30] MEDS: Insulin DETEMIR 100 UNIT/ML X5UNITS SQ SCH ×2 (13:21→21:35)
[2018-06-30] MEDS: Aspirin 325 MG TABLET PO SCH (13:25)
[2018-06-30] MEDS: Lisinopril 20 MG TABLET PO SCH (13:25)
[2018-06-30] MEDS: hydroCHLOROthiazide 25 MG TABLET PO SCH (13:25)
[2018-06-30] MEDS: Isosorbide MONOnitrate (24 HR) 30 MG TAB.ER.24H PO SCH (13:26)
[2018-06-30] MEDS: Famotidine 20 MG TABLET PO SCH (21:35)
[2018-07-01] MEDS: *HR* Heparin 5,000 UNIT/ML VIAL SQ SCH (06:05)
[2018-07-01] MEDS: Aspirin 325 MG TABLET PO SCH (08:56)
[2018-07-01] MEDS: Lisinopril 20 MG TABLET PO SCH (08:56)
[2018-07-01] MEDS: Isosorbide MONOnitrate (24 HR) 30 MG TAB.ER.24H PO SCH (08:56)
[2018-07-01] MEDS: hydroCHLOROthiazide 25 MG TABLET PO SCH (08:56)
[2018-07-01] MEDS: Insulin DETEMIR 100 UNIT/ML X5UNITS SQ SCH (08:57)
[2018-07-01] MEDS: Insulin LISPRO 300 UNITS/3 ML VIAL SQ SCH ×2 (08:59→12:19)
[2018-07-01 10:52] VITALS: BP 114/73
--- NOTE | 2018-07-01 14:19 | Discharge Summary ---
- NOTES TO OUTPATIENT PROVIDER Notes to Outpatient Provider: basic discharge f/u Orders not resulted at time of discharge: Pending orders 06/30/18 08:08 NM aidan perf SPECT multi [NM] Routine Date of Encounter: 07/01/18 Time of Encounter: 14:17 - Discharge Diagnosis (1) Chest pain Priority: Primary Status: Acute Assessment and Plan: Pt complains of midsternal chest pain of 1 day duration risk factors indluce CAD including prior DC, hypertension, & diabetes Received aspirin and nitroglycerin in Er. Trend troponins serial troponins negative x4 TTE- LVEF 65%. Normal LV chamber size, wall thickness and function. Normal right ventricular structure and function. No significant valvular dysfunction. No pulmonary hypertension. Estimated RA pressure is 5 mmHg. Stress test negative for ischemia or perfusion defect Qualifiers: Chest pain type: unspecified Qualified Code(s): R07.9 - Chest pain, unspecified (2) Hypertension Priority: Secondary Status: Chronic Assessment and Plan: continue home meds Qualifiers: Hypertension type: essential hypertension Qualified Code(s): I10 - Essential (primary) hypertension (3) Hyperlipemia Priority: Secondary Status: Chronic Assessment and Plan: continue statin Qualifiers: Hyperlipidemia type: unspecified Qualified Code(s): E78.5 - Hyperlipidemia , unspecified (4) GERD (gastroesophageal reflux disease) Priority: Secondary Status: Chronic Assessment and Plan: continue ranitidine Qualifiers: Esophagitis presence: without esophagitis Qualified Code(s): K21.9 - Gastro -esophageal reflux disease without esophagitis (5) Type 2 diabetes mellitus Priority: Secondary Status: Chronic Assessment and Plan: per hx blood glucose stable, Continue long and short acting sc insulin Qualifiers: 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 Has history of diverticulitis Had some nausea, vomiting and diarrhea this am, multiple episodes. Denies fevers / abdominal pain. No diarrhea prior to this am Obtain CT abdomen, blood cultures, will hold off on antibiotics pending results 06/30 - Abd pain improved no N/V states that diarrhea is chronic - No fevers, white count back to baseline CT of abd with nothing acute - suspect leukocytosis is reactive 07/01- leukocytosis improving, WBC 11.8, CT abdomen per my review is non acute Qualifiers: Leukocytosis type: unspecified Qualified Code(s): D72.829 - Elevated white blood cell count, unspecified (7) DVT prophylaxis Priority: Secondary Status: Acute Hospital course: Ms. Hill is a 58 year old female who was admitted for chest pain rule out. Prior history of DC. Presented with one-day history of chest pressure/ discomfort. Serial troponins obtained and found to be negative 4. EKG without any acute ST-T wave changes concerning for ischemia. TTE grossly unremarkable. Stress test completed found to be negative for ischemia or perfusion defect. With negative workup patient is being discharged home. She is instructed to follow-up with PCP within 1 week of discharge. Additionally, she is instructed to follow-up with her didactic instructor in 2-3 weeks of d/c Discharge discussed with: patient, nurse - Time Spent with Patient Total time spent providing and/or coordinating discharge services: Less than 30 minutes - Discharge Medications Home Medications: Atorvastatin Calcium [Lipitor] 80 mg PO QAM 08/11/15 [History] Insulin Lispro Protamin/Lispro [Humalog Mix 75-25 Kwikpen] 5 - 18 unit SQ TIDAC 08/11/15 [History] Liraglutide [Victoza 2-Jarad] 1.6 mg SQ QAM 08/11/15 [History] Metoprolol [Lopressor] 50 mg PO BID 08/11/15 [History] Levomefolate/B6/B12/Algal Oil [Metanx Capsule] 1 each PO BID 02/02/17 [History] Isosorbide MONOnitrate [Isosorbide Mononitrate] 30 mg PO QAM 07/17/17 [History] Aspirin 325 mg PO DAILY 06/29/18 [History] Insulin Glargine,Hum.rec.anlog [Basaglar Kwikpen U-100] 60 unit SQ QPM PRN 06/29 [History] Insulin Glargine,Hum.rec.anlog [Basaglar Kwikpen U-100] 70 unit SQ QAM 06/29/18 [History] Nitroglycerin [Nitrostat] 0.4 mg SL AD PRN 06/29/18 [History] Ranitidine HCl [Acid Out Of Town Collection Clerk] 150 mg PO BID 06/29/18 [History] Sucralfate [Carafate] 1 gm PO BID PRN 06/29/18 [History] hydroCHLOROthiazide [Hydrochlorothiazide] 25 mg PO DAILY 06/29/18 [History] Allergies/Adverse Reactions: 3 Allergy/AdvReac Type Severity Reaction Status Date / Time dicyclomine AdvReac Hives Verified 06/29/18 09:35 metformin AdvReac Blurry Verified 06/29/18 09:35 Vision Date of admission: 06/29/18 09:49 Primary care physician: Dean Tim MD Discharging clinician: Pato Jain Anticipated date of discharge: 07/01/18 - Constitutional Vitals: Temp Pulse Resp BP Pulse Ox 97.9 F 88 16 114/73 97 07/01/18 10:51 07/01/18 10:51 07/01/18 10:51 07/01/18 10:51 07/01/18 10:51 Exam: . - Head Head exam: Present: atraumatic, normocephalic - Eye Eye exam: Present: PERRL, conjuntiva pink, sclera anicteric Pupils: Present: PERRL - Neck Neck exam general surgery: Present: supple, trachea midline. Absent: lymphadenopathy - Respiratory Respiratory exam: Present: CTAB. Absent: accessory muscle use, rales, rhonchi, wheezes - Cardiovascular Cardiovascular exam: Present: RRR, +S1, +S2. Absent: diastolic murmur, gallop, rubs, systolic murmur - GI/Abdominal GI/Abdominal exam: Present: normal bowel sounds, soft, no peritoneal signs. Absent: distended, tenderness - Extremities Exam Extremities exam: Present: warm, radial pulses palpable and symmetrical. Absent : calf tenderness, cyanotic, pedal edema - Neurological Exam Neurological exam: Present: CN II-XII intact, oriented X3, no focal deficits. Absent: pronater drift, facial droop, speech deficit - Skin Skin exam: Present: dry, intact - Patient Status Disposition: Home, Self-Care Condition: Good Functional capacity at discharge: independent ambulation Overall status at discharge: patient is progressing back to baseline - Discharge Instructions Instructions: Chest Pain (DC) Follow Up With: [facility] [Provider Group] (An appointment has been requested. The office will contact patient at home to schedule appointment. ) Dean Tim MD [Primary Care Provider] - 07/10/18 3:30 pm - Diet and Activity Activity: increase activity as tolerated, resume usual activities as tolerated Diet: diabetic diet, low fat, low cholesterol, low salt diet
--- NOTE | 2018-07-01 17:49 | Electrocardiograph Report ---
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
== END 2018-07-01 15:18 | disposition home or self-care (01) ==
LOC: EMEROOARM 08:05 → 3BNU 08:05
PROVIDERS: ADMIT Student in an Organized Health Care Education/Training Program; ATTEND Student in an Organized Health Care Education/Training Program

== ENCOUNTER 2019-08-12 07:23 | Observation (INO) ==
[2019-08-12] MEDS ORDERED: Ondansetron 4 MG/2 ML VIAL IVP ONE (07:41)
[2019-08-12 07:46] LABS: Basophils # 0.1 K/mcL (0.0-0.2); Basophils % 0.7 %; Eosinophils # 0.2 K/mcL (0.0-0.6); Eosinophils % 1.8 %; Hematocrit 36.3 % (35.3-44.9); Hemoglobin 11.9 g/dL (11.5-15.4); Lymphocytes # 2.1 K/mcL (0.6-4.6); Lymphocytes % 16.9 %; Mean Corpuscular HGB Conc 32.8 g/dL (31.6-35.5); Mean Corpuscular Hemoglobin 26.8 pg (28.0-33.3); Mean Corpuscular Volume 81.8 fL (83.0-100.0); Mean Platelet Volume 9.6 fL (9.4-12.4); Monocytes # 1.1 K/mcL (0.0-1.3); Monocytes % 8.8 %; Neutrophils # 8.7 K/mcL (1.6-8.9); Platelet Count 417 K/mcL (140-400); Red Blood Count 4.44 M/mcL (3.82-4.97); Red Cell Distribution Width 12.9 % (11.5-14.5); Segmented Neutrophils % 70.8 %; White Blood Count 12.3 K/mcL (4.3-11.1)
[2019-08-12 07:58] LABS: INR 0.9; Prothrombin Time 10.6 Seconds (9.4-12.1)
[2019-08-12 08:01] LABS: Activated Partial Thrombo Time 30.5 Seconds (26.0-36.0)
[2019-08-12 08:06] LABS: BUN/Creatinine Ratio 25 (6-26); Blood Urea Nitrogen 24 mg/dL (6-20); Calcium 8.9 mg/dL (8.6-10.3); Carbon Dioxide 25 mEq/L (23-29); Chloride 102 mEq/L (98-107); Glucose 214 mg/dL (70-105); Osmolality,Calculated 294 (280-300); Potassium 3.6 mEq/L (3.5-5.1); Sodium 137 mEq/L (136-145); eGFR For African Americans > 60 (> 60); eGFR For Non-African Americans 59 (> 60)
[2019-08-12 08:07] LABS: Troponin I < 0.03 ng/mL (< 0.04)
[2019-08-12] MEDS ORDERED: Aspirin 325 MG TABLET PO ONE (08:07)
[2019-08-12] MEDS ORDERED: Acetaminophen 325 MG TABLET PO PRN (08:31)
[2019-08-12] MEDS ORDERED: Naloxone 0.4 MG/ML INJ IVP PRN (08:31)
[2019-08-12] MEDS ORDERED: Ondansetron 4 MG/2 ML VIAL IVP PRN (08:31)
[2019-08-12] MEDS ORDERED: Nitroglycerin 0.4 MG TAB.SUBL SL PRN (08:36)
[2019-08-12] MEDS ORDERED: D5% in Water 1,000 ML IVC PRN (08:38)
[2019-08-12] MEDS ORDERED: Dextrose Gel 15 GM/37.5 ML TUBE PO PRN ×2 (08:38)
[2019-08-12] MEDS ORDERED: *HR* Dextrose 50 % in Water (Syg) 50 ML SYRINGE IVP PRN (08:38)
[2019-08-12] MEDS ORDERED: Aspirin Enteric Coated 81 MG Tablet PO SCH (09:00)
[2019-08-12] MEDS: Insulin LISPRO 300 UNITS/3 ML VIAL SQ SCH ×3 (11:12→21:14)
[2019-08-12] MEDS: Lisinopril 20 MG TABLET PO SCH (11:13)
[2019-08-12] MEDS: Isosorbide MONOnitrate (24 HR) 30 MG TAB.ER.24H PO SCH (11:13)
[2019-08-12] MEDS: *HR* Heparin 5,000 UNIT/ML VIAL SQ SCH (16:55)
[2019-08-12] MEDS: Sucralfate 1 GM TABLET PO SCH (21:13)
[2019-08-13 03:08] LABS: Prothrombin Time 11.3 Seconds (9.4-12.1)
[2019-08-13 03:23] LABS: Basophils # 0.1 K/mcL (0.0-0.2); Basophils % 0.7 %; Eosinophils # 0.2 K/mcL (0.0-0.6); Eosinophils % 1.7 %; Hematocrit 33.5 % (35.3-44.9); Hemoglobin 10.8 g/dL (11.5-15.4); Immature Granulocytes % 0.8 % (0-4); Lymphocytes # 2.1 K/mcL (0.6-4.6); Lymphocytes % 18.4 %; Mean Corpuscular HGB Conc 32.2 g/dL (31.6-35.5); Mean Corpuscular Hemoglobin 26.9 pg (28.0-33.3); Mean Corpuscular Volume 83.3 fL (83.0-100.0); Monocytes % 8.3 %; Neutrophils # 8.1 K/mcL (1.6-8.9); Platelet Count 360 K/mcL (140-400); Red Blood Count 4.02 M/mcL (3.82-4.97); Red Cell Distribution Width 12.9 % (11.5-14.5); Segmented Neutrophils % 70.1 %; White Blood Count 11.6 K/mcL (4.3-11.1)
[2019-08-13 03:31] LABS: BUN/Creatinine Ratio 18 (6-26); Blood Urea Nitrogen 16 mg/dL (6-20); Calcium 8.5 mg/dL (8.6-10.3); Carbon Dioxide 24 mEq/L (23-29); Chloride 103 mEq/L (98-107); Chol/HDL Ratio 3.9 (0-4.9); Cholesterol 126 mg/dL (< 200); Glucose 195 mg/dL (70-105); HDL Cholesterol 32 mg/dL (40-59); LDL Cholesterol,Calculated 63 mg/dL (0-99); Magnesium 1.6 mg/dL (1.6-2.6); Osmolality,Calculated 289 (280-300); Potassium 3.7 mEq/L (3.5-5.1); Sodium 136 mEq/L (136-145); Triglycerides 154 mg/dL (< 150); eGFR For African Americans > 60 (> 60); eGFR For Non-African Americans > 60 (> 60)
[2019-08-13] MEDS: *HR* Heparin 5,000 UNIT/ML VIAL SQ SCH ×2 (05:23→21:47)
[2019-08-13] MEDS ORDERED: Regadenoson 0.4 MG/5 ML SYRINGE IVP ONE (06:30)
[2019-08-13] MEDS: Insulin LISPRO 300 UNITS/3 ML VIAL SQ SCH ×5 (08:34→21:46)
[2019-08-13] MEDS ORDERED: Aspirin Enteric Coated 325 MG Tablet PO SCH (09:00)
[2019-08-13] MEDS ORDERED: hydroCHLOROthiazide 25 MG TABLET PO SCH (09:00)
[2019-08-13] MEDS: Isosorbide MONOnitrate (24 HR) 30 MG TAB.ER.24H PO SCH (09:28)
[2019-08-13] MEDS: Lisinopril 20 MG TABLET PO SCH (09:28)
[2019-08-13] MEDS: Sucralfate 1 GM TABLET PO SCH ×2 (09:28→21:46)
[2019-08-13 12:05] LABS: Estimated Average Glucose 203 mg/dl
[2019-08-13] MEDS ORDERED: MAGNESIUM OXIDE 800 MG PO PRN (15:28)
[2019-08-13] MEDS ORDERED: Insulin DETEMIR 100 UNIT/ML X5UNITS SQ SCH (21:00)
[2019-08-14 04:33] LABS: Basophils # 0.1 K/mcL (0.0-0.2); Basophils % 0.7 %; Eosinophils # 0.2 K/mcL (0.0-0.6); Eosinophils % 1.9 %; Hematocrit 34.2 % (35.3-44.9); Immature Granulocytes % 0.8 % (0-4); Lymphocytes # 2.6 K/mcL (0.6-4.6); Lymphocytes % 22.4 %; Mean Corpuscular HGB Conc 32.2 g/dL (31.6-35.5); Mean Corpuscular Hemoglobin 26.8 pg (28.0-33.3); Mean Corpuscular Volume 83.4 fL (83.0-100.0); Mean Platelet Volume 9.8 fL (9.4-12.4); Monocytes # 1.1 K/mcL (0.0-1.3); Monocytes % 9.1 %; Neutrophils # 7.7 K/mcL (1.6-8.9); Platelet Count 365 K/mcL (140-400); Red Cell Distribution Width 13.2 % (11.5-14.5); Segmented Neutrophils % 65.1 %; White Blood Count 11.8 K/mcL (4.3-11.1)
[2019-08-14 04:45] LABS: BUN/Creatinine Ratio 19 (6-26); Blood Urea Nitrogen 18 mg/dL (6-20); Calcium 8.8 mg/dL (8.6-10.3); Carbon Dioxide 28 mEq/L (23-29); Chloride 103 mEq/L (98-107); Glucose 235 mg/dL (70-105); Osmolality,Calculated 295 (280-300); Sodium 138 mEq/L (136-145); eGFR For African Americans > 60 (> 60); eGFR For Non-African Americans 59 (> 60)
[2019-08-14] MEDS: *HR* Heparin 5,000 UNIT/ML VIAL SQ SCH (05:28)
[2019-08-14 07:10] VITALS: BP 124/84
[2019-08-14] MEDS ORDERED: Famotidine 20 MG TABLET PO SCH (07:30)
[2019-08-14] MEDS: Insulin LISPRO 300 UNITS/3 ML VIAL SQ SCH ×2 (08:26)
[2019-08-14] MEDS ORDERED: NON-FORMULARY MEDICATION 1 EACH EACH (Insulin Glargine,Hum.Rec.Anlog [Basaglar Kwikpen U-1 SQ SCH (09:00)
[2019-08-14] MEDS ORDERED: Insulin DETEMIR 100 UNIT/ML X5UNITS SQ SCH ×3 (09:00→21:00)
[2019-08-14] MEDS ORDERED: Cholecalciferol (D-3) 1,000 UNIT (25MCG) TABLET PO SCH (09:00)
[2019-08-14] MEDS: Sucralfate 1 GM TABLET PO SCH (09:22)
[2019-08-14] MEDS: Isosorbide MONOnitrate (24 HR) 30 MG TAB.ER.24H PO SCH (09:22)
[2019-08-14 09:46] LABS: Bilirubin,Urine Negative (Negative); Blood,Urine Negative (Negative); Clarity,Urine Clear (Clear); Color,Urine Yellow (Yellow); Glucose,Urine (UA) Normal (Normal); Ketones,Urine Negative (Negative); Leukocyte Esterase,Urine Moderate (Negative); Nitrite,Urine Negative (Negative); PH,Urine 5.5 pH Units (5.0-8.0); Protein,Urine Negative (Neg-Trace); Specific Gravity,Urine 1.019 (1.010-1.025); Urobilinogen,Urine Normal (Normal)
[2019-08-14 09:49] LABS: Bacteria,Urine None Seen per hpf (None-Few); Hyaline Casts,Urine None Seen per lpf (None-Few); RBC,Urine 0-3 per hpf (0-3); Squamous Epithelial Cell,Urine Many per lpf (None-Few)
== END 2019-08-14 11:23 | disposition home or self-care (01) ==
LOC: SUATTDRO → EMEROOARM 07:23 → 3BNU 07:23 → SUATTDRO 09:00 → 3BNU 09:22
PROVIDERS: ADMIT Student in an Organized Health Care Education/Training Program; ATTEND Internal Medicine

== ENCOUNTER 2021-02-17 08:48 | Observation (INO) ==
[2021-02-17] MEDS ORDERED: Aspirin 81 MG TAB.CHEW PO ONE (09:06)
[2021-02-17] MEDS ORDERED: Ondansetron 4 MG/2 ML VIAL IVP STA (09:14)
[2021-02-17 09:21] LABS: Basophils # 0.1 K/mcL (0.0-0.2); Basophils % 0.8 %; Eosinophils # 0.1 K/mcL (0.0-0.6); Eosinophils % 1.1 %; Hematocrit 39.7 % (35.3-44.9); Hemoglobin 12.4 g/dL (11.5-15.4); Immature Granulocytes % 0.6 % (0-4); Lymphocytes # 2.3 K/mcL (0.6-4.6); Lymphocytes % 19.7 %; Mean Corpuscular HGB Conc 31.2 g/dL (31.6-35.5); Mean Corpuscular Hemoglobin 26.4 pg (28.0-33.3); Mean Corpuscular Volume 84.5 fL (83.0-100.0); Mean Platelet Volume 9.3 fL (9.4-12.4); Monocytes # 0.8 K/mcL (0.0-1.3); Monocytes % 7.1 %; Neutrophils # 8.2 K/mcL (1.6-8.9); Platelet Count 390 K/mcL (140-400); Red Cell Distribution Width 13.2 % (11.5-14.5); Segmented Neutrophils % 70.7 %; White Blood Count 11.7 K/mcL (4.3-11.1)
[2021-02-17 09:29] LABS: Prothrombin Time 11.5 Seconds (9.4-12.1)
[2021-02-17 09:31] LABS: Activated Partial Thrombo Time 28.3 Seconds (26.0-36.0)
[2021-02-17 09:46] LABS: Alanine Aminotransferase 8 Units/L (7-52); Albumin/Globulin Ratio 1.3 (1.1-2.2); Alkaline Phosphatase 111 Units/L (34-104); Aspartate Amino Transferase 15 Units/L (13-39); BUN/Creatinine Ratio 15 (6-26); Bilirubin,Direct 0.1 mg/dL (0.0-0.2); Bilirubin,Indirect 0.4 mg/dL (0.0-1.0); Bilirubin,Total 0.5 mg/dL (0.3-1.0); Blood Urea Nitrogen 12 mg/dL (8-23); Calcium 9.1 mg/dL (8.6-10.3); Carbon Dioxide 25 mEq/L (23-29); Chloride 105 mEq/L (98-107); Glucose 147 mg/dL (70-105); Lipase 81 Units/L (11-82); Osmolality,Calculated 290 (280-300); Potassium 3.6 mEq/L (3.5-5.1); Sodium 139 mEq/L (136-145); Troponin I < 0.03 ng/mL (< 0.04); eGFR For African Americans > 60 (> 60); eGFR For Non-African Americans > 60 (> 60)
[2021-02-17 10:45] LABS: Bilirubin,Urine Negative (Negative); Blood,Urine Negative (Negative); Clarity,Urine Clear (Clear); Color,Urine Light-Yellow (Yellow); Glucose,Urine (UA) Normal (Normal); Ketones,Urine Negative (Negative); Leukocyte Esterase,Urine Trace (Negative); Mucus,Urine Few per lpf (None-Few); Nitrite,Urine Negative (Negative); PH,Urine 5.5 pH Units (5.0-8.0); Protein,Urine Negative (Neg-Trace); RBC,Urine 0-3 per hpf (0-3); Specific Gravity,Urine 1.023 (1.010-1.025); Squamous Epithelial Cell,Urine Few per hpf (None-Few); Urobilinogen,Urine Normal (Normal)
[2021-02-17] MEDS ORDERED: Acetaminophen 325 MG TABLET PO PRN (11:29)
[2021-02-17] MEDS ORDERED: Ondansetron ODT 4 MG TAB.RAPDIS SL PRN (11:29)
[2021-02-17] MEDS ORDERED: Naloxone 0.4 MG/ML INJ IVP PRN (11:29)
[2021-02-17] MEDS ORDERED: Nitroglycerin 0.4 MG TAB.SUBL SL PRN (11:39)
[2021-02-17] MEDS ORDERED: *HR* Dextrose 50 % in Water (Vial) 50 ML VIAL IVP PRN (11:43)
[2021-02-17] MEDS ORDERED: Dextrose Gel 15 GM/37.5 ML TUBE PO PRN ×2 (11:43)
[2021-02-17] MEDS ORDERED: D5% in Water 1,000 ML IVC PRN (11:43)
[2021-02-17] MEDS ORDERED: Aspirin Enteric Coated 81 MG Tablet PO SCH (11:45)
[2021-02-17] MEDS: Insulin LISPRO 300 UNITS/3 ML VIAL SUBQ SCH ×3 (12:23→17:06)
[2021-02-17 14:07] LABS: Estimated Average Glucose 186 mg/dl; Hemoglobin A1C 8.1 %
[2021-02-17] MEDS: *HR* Heparin 5,000 UNIT/ML VIAL SQ SCH ×2 (15:27→21:06)
[2021-02-17] MEDS: Sucralfate 1 GM TABLET PO SCH (21:05)
[2021-02-17] MEDS: Insulin DETEMIR 100 UNIT/ML X5UNITS SUBQ SCH (21:05)
[2021-02-18 05:16] LABS: Basophils # 0.1 K/mcL (0.0-0.2); Basophils % 0.5 %; Eosinophils # 0.1 K/mcL (0.0-0.6); Eosinophils % 1.1 %; Hematocrit 37.3 % (35.3-44.9); Hemoglobin 11.7 g/dL (11.5-15.4); Immature Granulocytes % 0.5 % (0-4); Lymphocytes # 2.4 K/mcL (0.6-4.6); Lymphocytes % 19.8 %; Mean Corpuscular HGB Conc 31.4 g/dL (31.6-35.5); Mean Corpuscular Hemoglobin 26.4 pg (28.0-33.3); Mean Corpuscular Volume 84.2 fL (83.0-100.0); Mean Platelet Volume 9.6 fL (9.4-12.4); Monocytes # 0.9 K/mcL (0.0-1.3); Monocytes % 7.8 %; Neutrophils # 8.4 K/mcL (1.6-8.9); Platelet Count 349 K/mcL (140-400); Red Blood Count 4.43 M/mcL (3.82-4.97); Red Cell Distribution Width 13.3 % (11.5-14.5); Segmented Neutrophils % 70.3 %
[2021-02-18] MEDS: *HR* Heparin 5,000 UNIT/ML VIAL SQ SCH ×3 (05:16→20:20)
[2021-02-18 05:30] LABS: BUN/Creatinine Ratio 13 (6-26); Blood Urea Nitrogen 10 mg/dL (8-23); Calcium 9.1 mg/dL (8.6-10.3); Carbon Dioxide 27 mEq/L (23-29); Chloride 104 mEq/L (98-107); Glucose 136 mg/dL (70-105); Osmolality,Calculated 287 (280-300); Sodium 138 mEq/L (136-145); eGFR For African Americans > 60 (> 60); eGFR For Non-African Americans > 60 (> 60)
[2021-02-18] MEDS ORDERED: Regadenoson 0.4 MG/5 ML SYRINGE IVP ONE (06:18)
[2021-02-18] MEDS: Insulin LISPRO 300 UNITS/3 ML VIAL SUBQ SCH ×6 (09:59→16:51)
[2021-02-18] MEDS: hydroCHLOROthiazide 25 MG TABLET PO SCH (12:16)
[2021-02-18] MEDS: lisinopriL 20 MG TABLET PO SCH (12:16)
[2021-02-18] MEDS: Aspirin Enteric Coated 81 MG Tablet PO SCH (12:16)
[2021-02-18] MEDS: Sucralfate 1 GM TABLET PO SCH ×2 (12:16→20:20)
[2021-02-18] MEDS: Insulin DETEMIR 100 UNIT/ML X5UNITS SUBQ SCH (20:20)
[2021-02-19] MEDS: *HR* Heparin 5,000 UNIT/ML VIAL SQ SCH (05:09)
[2021-02-19] MEDS: Insulin LISPRO 300 UNITS/3 ML VIAL SUBQ SCH ×5 (07:08→13:18)
[2021-02-19] MEDS: Sucralfate 1 GM TABLET PO SCH (08:30)
[2021-02-19] MEDS: lisinopriL 20 MG TABLET PO SCH (08:30)
[2021-02-19] MEDS: hydroCHLOROthiazide 25 MG TABLET PO SCH (08:30)
[2021-02-19] MEDS: Aspirin Enteric Coated 81 MG Tablet PO SCH (08:31)
[2021-02-19] MEDS ORDERED: Cholecalciferol (D-3) 1,000 UNIT (25MCG) TABLET PO SCH (09:00)
[2021-02-19 09:06] LABS: Basophils # 0.1 K/mcL (0.0-0.2); Basophils % 0.8 %; Eosinophils # 0.1 K/mcL (0.0-0.6); Eosinophils % 0.5 %; Hemoglobin 12.9 g/dL (11.5-15.4); Immature Granulocytes % 0.5 % (0-4); Lymphocytes # 2.2 K/mcL (0.6-4.6); Lymphocytes % 17.3 %; Mean Corpuscular Hemoglobin 25.9 pg (28.0-33.3); Mean Corpuscular Volume 86.3 fL (83.0-100.0); Mean Platelet Volume 9.6 fL (9.4-12.4); Monocytes # 0.8 K/mcL (0.0-1.3); Monocytes % 6.3 %; Neutrophils # 9.6 K/mcL (1.6-8.9); Platelet Count 433 K/mcL (140-400); Red Blood Count 4.98 M/mcL (3.82-4.97); Red Cell Distribution Width 13.3 % (11.5-14.5); Segmented Neutrophils % 74.6 %; White Blood Count 12.9 K/mcL (4.3-11.1)
[2021-02-19 09:25] LABS: BUN/Creatinine Ratio 15 (6-26); Blood Urea Nitrogen 13 mg/dL (8-23); Carbon Dioxide 28 mEq/L (23-29); Chloride 101 mEq/L (98-107); Glucose 191 mg/dL (70-105); Magnesium 1.8 mg/dL (1.6-2.6); Osmolality,Calculated 293 (280-300); Potassium 4.3 mEq/L (3.5-5.1); Sodium 139 mEq/L (136-145); eGFR For African Americans > 60 (> 60); eGFR For Non-African Americans > 60 (> 60)
[2021-02-19 11:07] VITALS: BP 101/64
== END 2021-02-19 15:28 | disposition home or self-care (01) ==
LOC: 3BNU 08:48 → EMEROOARM 08:48 → SUATTDRO 11:13 → 3BNU 11:55
PROVIDERS: ADMIT Student in an Organized Health Care Education/Training Program; ATTEND Pharmacist